=== PATIENT | male | born 1970 | race Caucasian/White ===

== ENCOUNTER 2020-03-19 07:30 | Inpatient (IN) | payer MEDICAID, SELFPAY ==
[2020-03-19] VITALS (107 sets, daily range): BP systolic 101–134; BP diastolic 53–87; PULSE 55–87; RESP 14–30; TEMP 35.9–36.8; O2SAT 96–100
--- NOTE | 2020-03-19 07:15 | DI.CT_ITS ---
EXAM: CT BRAIN NECK CTA CLINICAL HISTORY: left sided stroke like symptoms. TECHNIQUE: Imaging Protocol: Axial CT angiography was performed with multi-slice acquisition and mu lti-planar and/or 3D reconstructions. CONTRAST MATERIAL: Intravenous: Omnipaque 350 Contrast volume:85 mL COMPARISON: No exams were available for comparison FINDINGS: CT Head W/O: Ventricles and Extra axial spaces: Normal in size and morphology for the patient's age. Hemorrhage: None. Cerebral parenchyma: Normal. Midline shift: None. Brainstem/Cerebellum: Normal. Calvarium: Normal. Visualized Paranasal sinuses/Mastoids: Clear. Soft Tissues: Unremarkable. CTA Brain W: Internal Carotid Arteries: Petrous: Normal. Cavernous: Normal. Cerebral: Normal. Anterior Cerebral Arteries: Right: No aneurysm, occlusion or significant stenosis. Left: No aneurysm, occlusion or significant stenosis. Middle Cerebral Arteries: Right: No aneurysm, occlusion or significant stenosis. Left: No aneurysm, occlusion or significant stenosis. Posterior cerebral Arteries: Right: No aneurysm, occlusion or significant stenosis. Left: No aneurysm, occlusion or significant stenosis. Vertebral Arteries: Right: No aneurysm, occlusion or significant stenosis. Left: No aneurysm, occlusion or significant stenosis. Basilar Artery: No aneurysm, occlusion or significant stenosis. CTA Neck W: Common Carotid: Right: No dissection, occlusion or significant stenosis. Left: No dissection, occlusion or significant stenosis. External Carotid: Right: No occlusion or significant stenosis. Left: No occlusion or significant stenosis. Internal Carotid: Right: No dissection, occlusion or significant stenosis. Mild atherosclerosis at the origin of the r ight internal carotid artery. Left: No dissection, occlusion or significant stenosis. Vertebral Artery: Right: No dissection, occlusion or significant stenosis. Left: No dissection, occlusion or significant stenosis. There is a dominant left vertebral artery. Lung Apices: Normal. Bones: Mild degenerative changes in the cervical spine. Soft Tissues: Normal. IMPRESSION: 1. No evidence of occlusion or severe stenosis on the CTA of the head. 2. Unremarkable noncontrast CT Head. 3. No evidence of occlusion or severe stenosis on the CTA of the neck. RADIATION DOSE DELIVERED: 1,120.04mGy.cm Total DLP DATA REPOSITORY: All CT scans at this facility are submitted to the National Radiology Data Registry (NRDR) Dose Index Registry (DIR) with the [employer] (ACR). RADIATION OPTIMIZATION: All CT scans at this facility use at least one of these dose optimization te chniques: automated exposure control; mA and/or kV adjustment per patient size (includes targeted exa ms where dose is matched to clinical indication); or iterative reconstruction.
--- NOTE | 2020-03-19 07:15 | RT.EKG_ITS ---
APPROVED REPORT Exam: Resting ECG Patient Location: E HR:68 bpm ECG Measurements Heart Rate 68 AXIS MI 185 P 67 QRSd 81 QRS 77 QT 388 T 20 QTc 412 Conclusion EKG 7: 38 Rate 68, intervals normal, nonspecific ST elevation, particularly 1 mm in V2, and 1 to 1.5 mm in V3, J-point noted in V4 V5 and V6. No reciprocal depressions, inconsistent with STEMI currently.
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
[2020-03-19 07:45] LABS: Abs Immature Grans 0.02 10^3/uL (0.0-0.06); Absolute Basophil Count 0.05 10^3/uL (0.0-0.2); Absolute Eosinophil Count 0.13 10^3/uL (0.0-0.7); Absolute Lymphocyte Count 1.57 10^3/uL (1.2-3.4); Absolute Monocyte Count 0.61 10^3/uL (0.1-0.8); Absolute Neutrophil Count 2.38 10^3/uL (1.2-6.7); BE (Venous) -3 mmol/L (-2-3); Basophils % 1.1; Eosinophils % 2.7; HCO3 (Venous) 22 mmol/L (23-28); HCT 41.8 % (40.0-50.0); HGB 13.9 g/dL (13.5-17.5); Immature Grans % 0.4; MCH 30.8 pg (27.0-33.0); MCHC 33.3 % (32.0-36.0); MCV 92.5 fL (80-95); MPV 10.4 fL (8.0-11.0); Monocytes % 12.8; Nucleated RBC 0 %; O2 Sat (Venous) 63 %; Platelet Count 220 10^3/uL (130-400); RBC 4.52 10^6/uL (4.36-5.78); RDW 12.6 % (11.8-14.1); TCO2 (Venous) 19 mmol/L (24-29); WBC 4.76 10^3/uL (4.4-10.8); pCO2 (Venous) 35 mmHg (41-51); pO2 (Venous) 31 mmHg
[2020-03-19 08:01] LABS: ALT 23 U/L (16-63); AST 25 U/L (15-37); Albumin 3.7 g/dL (3.4-5.0); Alkaline Phosphatase 70 U/L (46-116); Anion Gap 10.3 mmol/L (3-11); BUN 11 mg/dL (7-18); Bilirubin, Total 0.4 mg/dL (0.2-1.0); CO2 22.7 mmol/L (21.0-32.0); CREATININE 0.78 mg/dL (0.70-1.30); Calcium 8.9 mg/dL (8.5-10.1); Chloride 106 mmol/L (98-107); Glucose 126 mg/dL (74-106); Sodium 139 mmol/L (136-145); Total Protein 6.9 g/dL (6.4-8.2)
[2020-03-19 08:06] LABS: PTT Activated 20.4 sec (21.0-27.8)
[2020-03-19 08:09] LABS: ETHANOL BLOOD < 3.0 mg/dL (<3)
[2020-03-19] MEDS: Omnipaque 350 MG/ML 100 ML BTL IJ (08:14)
[2020-03-19] MEDS: Normal Saline Flush 10 ML SYR IVP (08:15)
[2020-03-19 08:36] LABS: Ammonia < 10 umol/L (11-32)
[2020-03-19] MEDS: Normal Saline 1,000 ML 125 ML IV ×2 (08:45→23:34)
--- NOTE | 2020-03-19 09:03 | DI.VRAD_ITS ---
PROCEDURE INFORMATION: Exam: CT Angiography Head With Contrast Exam date and time: 03/19/2020 7:30 AM Age: 49 years old Clinical indication: Dizziness and giddiness and other: L sided stroke symptoms TECHNIQUE: Imaging protocol: Computed tomography angiography of the head with intravenous contrast. 3D rendering (Not supervised by radiologist): MIP and/or 3D reconstructed images were created by the technologist. COMPARISON: No relevant prior studies available. FINDINGS: ANTERIOR CIRCULATION: Right internal carotid artery: Unremarkable. Intracranial segment is patent with no significant stenosis. No aneurysm. Right middle cerebral artery: Unremarkable. No occlusion or significant stenosis. No aneurysm. Right anterior cerebral artery: Unremarkable. No occlusion or significant stenosis. No aneurysm. Left internal carotid artery: Unremarkable. Intracranial segment is patent with no significant stenosis. No aneurysm. Left middle cerebral artery: Unremarkable. No occlusion or significant stenosis. No aneurysm. Left anterior cerebral artery: Unremarkable. No occlusion or significant stenosis. No aneurysm. POSTERIOR CIRCULATION: Right vertebral artery: Unremarkable. No occlusion or significant stenosis. No aneurysm. Left vertebral artery: Unremarkable. No occlusion or significant stenosis. No aneurysm. Basilar artery: Unremarkable. No occlusion or significant stenosis. No aneurysm. Right posterior cerebral artery: Unremarkable. No occlusion or significant stenosis. No aneurysm. Left posterior cerebral artery: Unremarkable. No occlusion or significant stenosis. No aneurysm. Brain: No definite mass, mass effect, or midline shift. Cerebral ventricles: Normal. No ventriculomegaly. Bones/joints: Unremarkable. No acute fracture. Soft tissues: Unremarkable. IMPRESSION: 1. No evidence of severe stenosis or occlusion of the vessels of the [id number] or their visualized branches. 2. No evidence of acute thrombosis or embolus. PROCEDURE INFORMATION: Exam: CT Angiography Neck With Contrast Exam date and time: 03/19/2020 7:30 AM Age: 49 years old Clinical indication: Dizziness and giddiness and other: L sided stroke symptoms TECHNIQUE: Imaging protocol: Computed tomography angiography of the neck with intravenous contrast. 3D rendering (Not supervised by radiologist): MIP and/or 3D reconstructed images were created by the technologist. COMPARISON: No relevant prior studies available. FINDINGS: Right common carotid artery: No stenosis. No dissection or occlusion. Right internal carotid artery: No stenosis of the extracranial segment. No dissection or occlusion. There is a small calcified plaque at the origin of the right internal carotid artery causing no stenosis by NASCET criteria. Right external carotid artery: No occlusion or stenosis of the origin. Right vertebral artery: A non dominant right vertebral artery with mild distal hyperplasia, anatomic variant. Left common carotid artery: No stenosis. No dissection or occlusion. Left internal carotid artery: No stenosis of the extracranial segment. No dissection or occlusion. Left external carotid artery: No occlusion or stenosis of the origin. Left vertebral artery: No stenosis. No dissection or occlusion. Bones/joints: No acute fracture. Soft tissues: Normal. No significant soft tissue swelling. IMPRESSION: 1. Atherosclerotic disease of the extracranial right internal carotid artery with no stenosis by NASCET criteria. 2. Normal left extracranial internal carotid artery by NASCET criteria. 3. Patent bilateral vertebral arteries with a dominant left vertebral. REFERENCES: NASCET CRITERIA. The degree of internal carotid artery stenosis is based on NASCET criteria. Normal is no stenosis. Mild is less than 50% stenosis. Moderate is 50-69% stenosis. Severe is 70% to 99% stenosis. Total occlusion is no detectable patent lumen. Dictated and Authenticated by: Roberto España MD. Ordering:SARA Mattson MD
[2020-03-19 09:20] LABS: Troponin I < 0.05 ng/mL (<0.06)
[2020-03-19 10:01] LABS: Bilirubin Negative (Negative); Blood Negative (Negative); Clarity Clear (Clear); Glucose Negative (Negative); Ketones Trace mg/dL (Negative); Leukocyte Esterase Negative (Negative); Nitrite Negative (Negative); Specific Gravity 1.015 (1.005-1.025); Urobilinogen 0.2 EU/dL (Up TO 0.2)
[2020-03-19] MEDS: Heparin 5,000 UNITS/ML VIAL 4600 UNITS IV (11:22)
[2020-03-19] MEDS: Aspirin 325 MG TAB PO (11:23)
--- NOTE | 2020-03-19 12:58 | NUR.NOTE ---
hospitalist in at bedside to see provider
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
[2020-03-19 15:08] LABS: C-Reactive Protein 0.07 mg/dL (0.0-0.3)
[2020-03-19 15:09] LABS: D-Dimer 284 ng/mlFEU (<500)
[2020-03-19 15:10] LABS: Troponin I < 0.05 ng/mL (<0.06)
[2020-03-19 15:13] LABS: FREE T4 0.92 ng/dL (0.76-1.46); TSH 0.95 uIU/mL (0.36-3.74)
[2020-03-19 15:18] LABS: ESR 15 mm/hr (0-15)
[2020-03-19 15:29] LABS: *AMPHETAMINES SCREEN URINE Negative (Negative); *BARBITURATES SCREEN URINE Negative (Negative); *BENZODIAZEPINES SCREEN URINE Negative (Negative); Cannabinoids THC Negative (Negative); Cocaine Screen,Urine Negative (Negative); METHADONE URINE SCREEN Negative (Negative); OPIATES URINE SCREEN Negative (Negative); Tricyclic Antidepressants Negative (Negative)
[2020-03-19 15:32] LABS: Procalcitonin < 0.1 ng/mL
[2020-03-19 15:58] LABS: Ferritin 84 ng/mL (26-388); Vitamin B12 440 pg/mL (193-986)
[2020-03-19 19:58] LABS: PTT Activated 71.6 sec (21.0-27.8)
[2020-03-19] MEDS: Atorvastatin 40 MG TAB PO (21:31)
[2020-03-19] MEDS: Famotidine 20 MG TAB PO (21:31)
--- NOTE | 2020-03-19 22:33 | NUR.NOTE ---
2114-ptt back at 71.6. Heparin gtt stopped for 1 hr . restarted at 2215 at700 ml or 7 units /hr per protocol. Next PTT to be drawn at 0315.
[2020-03-20] VITALS (90 sets, daily range): BP systolic 92–122; BP diastolic 57–76; PULSE 44–96; RESP 12–33; TEMP 36–36.5; O2SAT 96–100
[2020-03-20] MEDS: Normal Saline 1,000 ML 125 ML IV ×3 (06:29→22:20)
[2020-03-20 07:31] LABS: Abs Immature Grans 0.01 10^3/uL (0.0-0.06); Absolute Basophil Count 0.05 10^3/uL (0.0-0.2); Absolute Eosinophil Count 0.13 10^3/uL (0.0-0.7); Absolute Lymphocyte Count 1.89 10^3/uL (1.2-3.4); Absolute Monocyte Count 0.53 10^3/uL (0.1-0.8); Absolute Neutrophil Count 1.66 10^3/uL (1.2-6.7); Basophils % 1.2; HCT 36.9 % (40.0-50.0); HGB 12.2 g/dL (13.5-17.5); Immature Grans % 0.2; Lymphocytes % 44.3; MCH 30.7 pg (27.0-33.0); MCHC 33.1 % (32.0-36.0); MCV 92.7 fL (80-95); Monocytes % 12.4; Neutrophils % 38.9; Nucleated RBC 0 %; Platelet Count 207 10^3/uL (130-400); RBC 3.98 10^6/uL (4.36-5.78); RDW 13.1 % (11.8-14.1); RDW-SD 44.8 fL; WBC 4.27 10^3/uL (4.4-10.8)
[2020-03-20 07:48] LABS: Anion Gap 7.6 mmol/L (3-11); BUN 8 mg/dL (7-18); CO2 23.4 mmol/L (21.0-32.0); CREATININE 0.64 mg/dL (0.70-1.30); Calcium 8.2 mg/dL (8.5-10.1); Calculated LDL 92 mg/dL (<100); Chloride 110 mmol/L (98-107); Cholesterol 165 mg/dL (<200); Glucose 94 mg/dL (74-106); HDL Cholesterol 67 mg/dL (40-60); Magnesium 1.8 mg/dL (1.8-2.4); Potassium 3.8 mmol/L (3.5-5.1); Sodium 141 mmol/L (136-145); Triglyceride 31 mg/dL (<150); Troponin I < 0.05 ng/mL (<0.06)
[2020-03-20 08:02] LABS: Hemoglobin A1C 5.8 % (<5.7)
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
--- NOTE | 2020-03-20 08:23 | PGE_ITS ---
Date of Service Date of service: 03/20/20 Time of Service: 14:04 Assessment and Plan Assessment and plan (1) Acute CVA (cerebrovascular accident): Status: Suspected Assessment and plan: There are no beds at [facility]. Continue heparin gtt per recommendation of [facility] neurology. The patient brought up that aspirin was on the list of medications he was to avoid due to having h/o minimal change disease. Dr Flores recommended changing to plavix instead, in this case. The patient's lipids are technically at goal, but will continue statin for now. MRI of the brain as well as echo are ordered. Await neuro consult. Await LE doppler to r/o a DVT (which could be contributing to the CVA if the patient has a PFO). Await tick panel is pending. Atypical migraine also needs to be considered. (2) Hyperlipidemia: Status: Chronic Assessment and plan: Lipids at goal. On a statin given suspected acute event. (3) Minimal change disease: Status: Chronic Assessment and plan: This presented with nephrotic syndrome >2 years ago in [place], in setting of NSAID use. Currently followed at [facility]. Previously on prednisone for this, but not at this time. Technically, the patient could be at a higher risk of being hypercoagulable. Additionally, will avoid asa in this patient and switch to plavix. (4) Stress headaches: Status: Chronic Assessment and plan: The patient has never seen a neurologist, and I wonder if he has migraines. (5) DVT prophylaxis: Status: Acute Assessment and plan: On therapeutic heparin gtt. (6) Discharge planning issues: Status: Acute Assessment and plan: Full code. Keep in ICU. Total Critical Care Time 60 minutes. Subjective Subjective Interval history since last seen: No h/a. No weakness today. L facial, LUE/LLE Numbness and paresthesias persist. The patient feels that the facial symptoms actually feel better. Endorses some dizziness with movement. Denies chest pain, shortness of breath, nausea. ESVIN overnight. No fever. Case was discussed with Dr Flores - neurology - would agreed that the patient should be transferred to [facility], but there are no beds available. Exam Narrative Exam Narrative: General: Middle-aged male, laying comfortably in bed, fluent speech, conversant. Neurological: A&Ox3, EOMI with horizontal nystagmus best seen in the left eye, L facial flattening is slightly improved; otherwise, CN II-XII intact, 5/5 LUE/LLE strength, 5/5 RUE/RLE strength HEENT: Atraumatic, normocephalic, EOMI, MMM Cardiovascular: RRR, no m/r/g Lungs: CTAB Gastrointestinal: soft, nontender, nondistended Extremities: no edema/clubbing/cyanosis of BLE's, trace pedal pulses B; B feet are cold. Objective Last Vital Signs Temp 36.5 C 03/20/20 00:00 Pulse 51 L 03/20/20 06:00 Resp 19 03/20/20 06:10 BP 115/69 03/20/20 06:00 Pulse Ox 98 03/20/20 00:00 Laboratory Results - last 24 hr 03/19/20 03/19/20 03/19/20 08:35 09:50 14:15 WBC RBC Hgb Hct MCV MCH MCHC RDW Plt Count MPV Immature Gran % Neutrophils % Lymphocytes % Monocytes % Eosinophils % Basophils % Nucleated RBC % Absolute Neutrophils Absolute Lymphocytes Absolute Monocytes Absolute Eosinophils Absolute Basophils ESR APTT D-Dimer Sodium Potassium Chloride Carbon Dioxide Anion Gap BUN Creatinine Estimated GFR/1.73 m2 Glucose Hemoglobin A1c Calcium Magnesium Ferritin Troponin I C-Reactive Protein Triglycerides Total Cholesterol LDL Cholesterol, Calc HDL Cholesterol Vitamin B12 Procalcitonin < 0.1 TSH Free T4 Urine Color Yellow Urine Clarity Clear Urine pH 7.0 Ur Specific [place] 1.015 Urine Protein Negative Urine Ketones Trace H Urine Blood Negative Urine Nitrite Negative Urine Bilirubin Negative Urine Urobilinogen 0.2 Ur Leukocyte Esterase Negative Urine Glucose Negative Urine Opiates Screen Urine Methadone Screen Ur Barbiturates Screen Ur Tricyclics Screen Ur Amphetamines Screen U Benzodiazepines Scrn Urine Cocaine Screen Ur THC Screen COVID-19 PCR Cancelled Nasopharyn COVID-19 PCR Cancelled Ref Test Perform Site Cancelled 03/19/20 03/19/20 03/19/20 14:15 14:15 14:15 WBC RBC Hgb Hct MCV MCH MCHC RDW Plt Count MPV Immature Gran % Neutrophils % Lymphocytes % Monocytes % Eosinophils % Basophils % Nucleated RBC % Absolute Neutrophils Absolute Lymphocytes Absolute Monocytes Absolute Eosinophils Absolute Basophils ESR 15 APTT D-Dimer 284 Sodium Potassium Chloride Carbon Dioxide Anion Gap BUN Creatinine Estimated GFR/1.73 m2 Glucose Hemoglobin A1c Calcium Magnesium Ferritin Troponin I < 0.05 C-Reactive Protein 0.07 Triglycerides Total Cholesterol LDL Cholesterol, Calc HDL Cholesterol Vitamin B12 Procalcitonin TSH Free T4 Urine Color Urine Clarity Urine pH Ur Specific [place] Urine Protein Urine Ketones Urine Blood Urine Nitrite Urine Bilirubin Urine Urobilinogen Ur Leukocyte Esterase Urine Glucose Urine Opiates Screen Urine Methadone Screen Ur Barbiturates Screen Ur Tricyclics Screen Ur Amphetamines Screen U Benzodiazepines Scrn Urine Cocaine Screen Ur THC Screen COVID-19 [facility] COVID-19 PCR Ref Test Perform Site 03/19/20 03/19/20 03/19/20 14:15 15:07 19:20 WBC RBC Hgb Hct MCV MCH MCHC RDW Plt Count MPV Immature Gran % Neutrophils % Lymphocytes % Monocytes % Eosinophils % Basophils % Nucleated RBC % Absolute Neutrophils Absolute Lymphocytes Absolute Monocytes Absolute Eosinophils Absolute Basophils ESR APTT 71.6 H D D-Dimer Sodium Potassium Chloride Carbon Dioxide Anion Gap BUN Creatinine Estimated GFR/1.73 m2 Glucose Hemoglobin A1c Calcium Magnesium 2.0 Ferritin 84 Troponin I C-Reactive Protein Triglycerides Total Cholesterol LDL Cholesterol, Calc HDL Cholesterol Vitamin B12 440 Procalcitonin TSH 0.95 Free T4 0.92 Urine Color Urine Clarity Urine pH Ur Specific [place] Urine Protein Urine Ketones Urine Blood Urine Nitrite Urine Bilirubin Urine Urobilinogen Ur Leukocyte Esterase Urine Glucose Urine Opiates Screen Negative Urine Methadone Screen Negative Ur Barbiturates Screen Negative Ur Tricyclics Screen Negative Ur Amphetamines Screen Negative U Benzodiazepines Scrn Negative Urine Cocaine Screen Negative Ur THC Screen Negative COVID-19 [facility] COVID-19 PCR Ref Test Perform Site 03/20/20 03/20/20 03/20/20 03:30 06:20 06:20 WBC RBC Hgb Hct MCV MCH MCHC RDW Plt Count MPV Immature Gran % Neutrophils % Lymphocytes % Monocytes % Eosinophils % Basophils % Nucleated RBC % Absolute Neutrophils Absolute Lymphocytes Absolute Monocytes Absolute Eosinophils Absolute Basophils ESR APTT 48.0 H D D-Dimer Sodium 141 Potassium 3.8 Chloride 110 H Carbon Dioxide 23.4 Anion Gap 7.6 BUN 8 Creatinine 0.64 L Estimated GFR/1.73 m2 >= 60.00 Glucose 94 Hemoglobin A1c 5.8 H Calcium 8.2 L Magnesium 1.8 Ferritin Troponin I < 0.05 C-Reactive Protein Triglycerides 31 Total Cholesterol 165 LDL Cholesterol, Calc 92 HDL Cholesterol 67 Vitamin B12 Procalcitonin TSH Free T4 Urine Color Urine Clarity Urine pH Ur Specific [place] Urine Protein Urine Ketones Urine Blood Urine Nitrite Urine Bilirubin Urine Urobilinogen Ur Leukocyte Esterase Urine Glucose Urine Opiates Screen Urine Methadone Screen Ur Barbiturates Screen Ur Tricyclics Screen Ur Amphetamines Screen U Benzodiazepines Scrn Urine Cocaine Screen Ur THC Screen COVID-19 PCR Nasopharyn COVID-19 PCR Ref Test Perform Site 03/20/20 06:20 WBC 4.27 L RBC 3.98 L Hgb 12.2 L Hct 36.9 L MCV 92.7 MCH 30.7 MCHC 33.1 RDW 13.1 Plt Count 207 MPV 11.0 Immature Gran % 0.2 Neutrophils % 38.9 Lymphocytes % 44.3 Monocytes % 12.4 Eosinophils % 3.0 Basophils % 1.2 Nucleated RBC % 0 Absolute Neutrophils 1.66 Absolute Lymphocytes 1.89 Absolute Monocytes 0.53 Absolute Eosinophils 0.13 Absolute Basophils 0.05 ESR APTT D-Dimer Sodium Potassium Chloride Carbon Dioxide Anion Gap BUN Creatinine Estimated GFR/1.73 m2 Glucose Hemoglobin A1c Calcium Magnesium Ferritin Troponin I C-Reactive Protein Triglycerides Total Cholesterol LDL Cholesterol, Calc HDL Cholesterol Vitamin B12 Procalcitonin TSH Free T4 Urine Color Urine Clarity Urine pH Ur Specific [place] Urine Protein Urine Ketones Urine Blood Urine Nitrite Urine Bilirubin Urine Urobilinogen Ur Leukocyte Esterase Urine Glucose Urine Opiates Screen Urine Methadone Screen Ur Barbiturates Screen Ur Tricyclics Screen Ur Amphetamines Screen U Benzodiazepines Scrn Urine Cocaine Screen Ur THC Screen COVID-19 PCR Nasopharyn COVID-19 PCR Ref Test Perform Site
[2020-03-20] MEDS: Cyanocobalamin 500 MCG TAB 1000 MCG PO (08:39)
[2020-03-20] MEDS: Famotidine 20 MG TAB PO ×2 (08:40→20:15)
[2020-03-20] MEDS: Aspirin E.C. 81 MG TABEC PO (11:11)
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
[2020-03-20] MEDS: Clopidogrel 75 MG TAB PO (12:49)
[2020-03-20] MEDS: Atorvastatin 40 MG TAB PO (20:14)
[2020-03-21] VITALS (34 sets, daily range): BP systolic 99–129; BP diastolic 58–91; PULSE 45–81; RESP 14–30; TEMP 36.2–36.7; O2SAT 98–100
[2020-03-21] MEDS: Normal Saline 1,000 ML 125 ML IV (05:48)
[2020-03-21 07:04] LABS: PTT Activated 42.5 sec (21.0-27.8)
[2020-03-21 07:29] LABS: Anion Gap 8.3 mmol/L (3-11); BUN 9 mg/dL (7-18); CO2 21.7 mmol/L (21.0-32.0); CREATININE 0.75 mg/dL (0.70-1.30); Calcium 8.8 mg/dL (8.5-10.1); Chloride 110 mmol/L (98-107); Glucose 95 mg/dL (74-106); Magnesium 1.8 mg/dL (1.8-2.4); Potassium 3.8 mmol/L (3.5-5.1); Sodium 140 mmol/L (136-145)
--- NOTE | 2020-03-21 08:00 | DI.MRI_ITS ---
EXAM: MR BRAIN WO CLINICAL HISTORY: Suspected acute CVA,LT SIDED NUMBNESS,TINGLING, WEAKNESS TECHNIQUE: Multiplanar multisequence MRI of the brain was performed. COMPARISON: CT CT BRAIN NECK CTA from 03/19/2020 FINDINGS: VENTRICLES AND EXTRA AXIAL SPACES: Normal in size and morphology for the patient's age. MIDLINE SHIFT: None. CEREBRAL PARENCHYMA: There is an area of restricted diffusion on the right in the midbrain in the reg ion of the colliculus. No space-occupying lesion identified. There are several areas of hyperintense signal on the T2 and FLAIR images in the white matter. This likely reflects chronic microvascular is chemic change. HEMORRHAGE: None. BRAINSTEM/CEREBELLUM: Normal. CALVARIUM: Normal. VISUALIZED PARANASAL SINUSES/MASTOIDS:Clear. [place]: Normal flow void. [place]: Unremarkable. OTHER FINDINGS: None. IMPRESSION: There is an area of restricted diffusion on the right in the midbrain in the region of the colliculus . This is consistent with a subacute/acute infarct. Hyperintense signal on the T2 and FLAIR images in the white matter likely reflecting chronic microvas cular ischemic change. DATA REPOSITORY:
--- NOTE | 2020-03-21 08:00 | DI.US_ITS ---
EXAM: US EXTREMITY VENOUS BI CLINICAL HISTORY: LLE pain, concern for DVT. TECHNIQUE: Bilateral lower extremity venous ultrasound performed using grayscale, color-flow, and sp ectral Doppler analysis. COMPARISON: No exams were available for comparison FINDINGS: The bilateral common femoral, femoral and popliteal veins demonstrate normal compressibility, augment ation, and color Doppler. The posterior tibial veins are patent. The saphenofemoral junctions are unr emarkable. There is a 3 cm Cordova's cyst on the left. The soft tissues are unremarkable. IMPRESSION: Right: Negative for DVT Left: Negative for DVT DATA REPOSITORY:
--- NOTE | 2020-03-21 08:37 | PDOC.CMPRO ---
- If Service Date Differs Date of service: 03/21/20 Time of Service: 08:37 Care Management Progress Note S/O:Man is alert and engaged with CM he is currently having an echo. He is not comfortable with a discharge today. His plan will be to stay with his friend at time of discharge over in [place], [place]. CM will assist with insurance and Man agrees to consent to allow JOEL to assist with insurance. A:Man is a 49 year old patient admitted with suspected CVA P:Anticipate Man will be discharged home when medically cleared by provider. He will follow up with his PCP, cardiology, and plan of care as directed. His friend, Hunter, will transport him home via private vehicle when ready. CM will continue to support patient and discharge planning needs.
--- NOTE | 2020-03-21 08:49 | OT.INNT ---
Date of service: 03/21/20 Time of Service: 08:10 Occupational Therapy Notes 03/21/20 OT consult received and pt's chart was reviewed. OT attempted to see pt this morning and pt was out of room for testing per RN. OT will attempt consult tomorrow. [facility]
[2020-03-21 09:06] LABS: SARS-CoV-2 RNA Not Detected (NotDetected); SARS-CoV-2 RNA Source Nasal/Nares
[2020-03-21] MEDS: Cyanocobalamin 500 MCG TAB 1000 MCG PO (09:26)
[2020-03-21] MEDS: Clopidogrel 75 MG TAB PO (09:26)
[2020-03-21] MEDS: Famotidine 20 MG TAB PO ×2 (09:26→20:00)
--- NOTE | 2020-03-21 09:30 | DI.US_ITS ---
APPROVED REPORT EXAM: Comprehensive 2D, Doppler, and color-flow Echocardiogram Patient Location: In-Patient Room/Bed: [id number] Spinner Box: Jackie Moreno RDCS (AE) Indications: Suspected acute CVA Other Information Study Quality: Adequate Conclusion Left Ventricle : The left ventricle is normal size. The left ventricular systolic function is normal. The left ventricular ejection fraction is within the normal range. There is normal left ventricular wall thickness. There is normal LV segmental wall motion. The left ventricular diastolic function is normal. LVEF is 58%. Right Ventricle : The right ventricle is normal size. The right ventricular systolic function is norm al. The RVSP is 22.8mmHg. Atria : The left atrium size is normal. The right atrium size is normal. The interatrial septum is in tact with no evidence for an atrial septal defect. Atrial septal aneurysm is present. Mitral Valve : The mitral valve is normal in structure. Mild mitral regurgitation. No evidence of charlee ral valve stenosis. Great Vessels : The aortic root is normal in size. The ascending aorta is normal in size. Aortic arch is normal in caliber. IVC is normal in size and collapses >50% with inspiration. There is no prior study available for comparison. Please see remainder of study for further details. Wall motion Left Ventricle The left ventricle is normal size. The left ventricular systolic function is normal. The left ventric ular ejection fraction is within the normal range. There is normal left ventricular wall thickness. T here is normal LV segmental wall motion. The left ventricular diastolic function is normal. There is no ventricular septal defect visualized. LVEF is 58%. Right Ventricle The right ventricle is normal size. The right ventricular systolic function is normal. The RVSP is 22 .8mmHg. Atria The left atrium size is normal. The right atrium size is normal. The interatrial septum is intact wit h no evidence for an atrial septal defect. Atrial septal aneurysm is present. Aortic Valve The aortic valve is normal in structure. There is no aortic valvular stenosis. No aortic regurgitatio n is present. Mitral Valve The mitral valve is normal in structure. No evidence of mitral valve stenosis. Mild mitral regurgitat ion. Tricuspid Valve The tricuspid valve is normal in structure. There is no tricuspid valve stenosis. Trace tricuspid reg urgitation. Pulmonic Valve The pulmonary valve is normal in structure. There is no pulmonic valvular stenosis. Trace pulmonic re gurgitation. Great Vessels The aortic root is normal in size. The ascending aorta is normal in size. Aortic arch is normal in ca liber. IVC is normal in size and collapses >50% with inspiration. Pericardium There is no pericardial effusion. 2D Dimensions IVSD d PLAX 0.92 cm M: 0.6-1.2 LV Vol A2C d MOD 110.0 mL LVPW d PLAX 0.90 cm M: 0.6 - 1.2 LV Vol A4C d MOD 128.4 mL LVID d PLAX 4.82 cm M: 4.2 - 5.8 LA vol/ BSA A2C s A-L 30.7 mL/m2 LVDs 3.10 cm M: 2.5 - 4.0 LA vol/ BSA A4C s A-L 31.8 mL/m2 Ao Root d 2.75 cm M: 3.1 - 3.7 LA Vol/ BSA Biplane s A-L 32.4 mL/m2 RA Area A4C 12.08 cm2 LA Area A4C s MOD 19.77 cm2 RA Vol/ BSA A4C s A-L 15.1 mL/m2 LA Area A2C s MOD 18.75 cm2 Ao Asc Diam d 2.95 cm M: 2.6 - 3.4 LV EF A4C MOD 58.6 % LV EF Teichholz 64.0 % LV EF A2C MOD 56.6 % LVEF (Pa's) 57.84 % M: 52 - 72 LV EF Biplane MOD 57.8 % LV Volume 92.36 mL M: 62 - 150 SV 69.78 mL LV Volume Index 49.12 mL/m2 M: 34 - 74 SV Index 37.07 mL/m2 LV Vol Biplane MOD 120.6 mL FS 34.90 % M-Mode TAPSE 2.11 cm (M/F) >1.7 LV Diastology MV E' medial 0.127 (>0.07 m/s) E/A Ratio 1.6 LV E/e MED 8.55 (<14) MV E Vmax 1.09 (0.4-1.3 m/s) MV E' lateral 0.165 (>0.1 m/s) MV A Vmax 0.70 (0.4-1.3 m/s) LV E/e LAT 6.60 (<14) MV E/A Ratio 1.46 MV E/E' medial 8.57 MV E/E' lateral 6.60 Aortic Valve LVOT Area 3.42 cm2 AoV Area Vmax 3.11 cm2 LVOT Vmax 1.48 m/s AoV Area/ BSA (Vmax) 1.65 cm2/m2 LVOT Mean Major. 0.94 m/s LORRAINE Mean Major. 2.91 cm2 LVOT Peak Grad 8.7 mmHg LORRAINE Mean Major. Index 1.55 cm2/m2 LVOT Mean Grad 4.2 mmHg LVOT VTI 0.280 m LVOT Diam s 2.05 cm AoV Vmax 1.63 m/s Velocity Ratio 0.90 AoV Mean Major. 1.10 m/s AoV Peak Grad 10.6 mmHg LVOT SV 95.87 mL AoV Mean Grad 5.5 mmHg AoV VTI 0.257 m AoV Area VTI 3.73 cm2 AoV Area/ BSA (VTI) 1.98 cm/m2 Mitral Valve MV DT 186 (160-240 msec) MR Vmax 5.35 m/s MV PHT 54 msec MR VTI 1.855 m MV Area PHT 4.07 cm2 MR Peak Grad 114.6 mmHg MV VTI 0.274 m MR Mean Grad 94.6 mmHg MV VTI Annulus 0.274 m MR PISA Radius 0.37 cm MV Area VTI 3.51 (4.0-6.0 cm2) MR EROA 0.06 cm2 MR Aliasing Velocity 0.35 m/s MR PISA 0.84 cm2 Pulmonary Valve PV Vmax 1.05 (0.5-1.5 m/s) RVOT Peak Gr. 2.12 mmHg PV Peak Grad 4.4 mmHg RVOT Mean Gr. 1.05 mmHg PV Mean Grad 2.1 mmHg RVOT VTI 0.160 m PV VTI 0.210 m RVOT Vmax 0.73 m/s Tricuspid Valve TR Peak Grad 19.7 mmHg TR Vmax 2.22 m/s RA Pressure 3.00 mmHg RVSP (TR) 22.8 mmHg
--- NOTE | 2020-03-21 12:55 | W.NUTRFU ---
Date of service: 03/21/20 Time of Service: 12:55 Nutritional Follow up NOTE: 49 year old male admitted with CVA. BMI wnl for age. Following regular meal plan with excellent intake. PRODUCT SUPPORT TECHNICIAN not consulted, no swallowing issues per nursing. Currently not considered at nutritional risk. WIll continueto follow. Time Spent in Nutritional Counseling and Treatment: 0 time spent face to face
--- NOTE | 2020-03-21 15:56 | CHAPLAIN ---
Man was resting in bed when I visited. He told me about the symptoms he experienced on Saturday morning that brought him to the ER. Most of his family lives in [place] and he's been in touch with them by phone. A family friend is a doctor, who has been helping to explain his medical issues to his parents. Man said he moved to [facility] a few years ago after living in [place], [place] far from [facility].
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
--- NOTE | 2020-03-21 16:26 | PGE_ITS ---
Date of Service Date of service: 03/21/20 Time of Service: 16:26 Assessment and Plan Assessment and plan (1) Acute CVA (cerebrovascular accident): Status: Suspected Assessment and plan: Confirmed by MRI. Discussed with Dr Pope: we are d/c'ing heparin gtt today and will observe the patient overnight. Assuming he remains stable, he can be discharged home tomorrow. Does have evidence of an atrial septal aneurysm, but it is unlikely to be an embolic stroke based on location, per neuro. Given h/o nephrotic syndrome, we will get a hypercoagulable workup in the am. Continue plavix, statin. (2) Hyperlipidemia: Status: Chronic Assessment and plan: Lipids at goal. Continue statin. (3) Minimal change disease: Status: Chronic Assessment and plan: This presented with nephrotic syndrome >2 years ago in [place], in setting of NSAID use. Currently followed at [facility]. Previously on prednisone for this, but not at this time. Technically, the patient could be at a higher risk of being hypercoagulable. As above - we will pursue hypercoagulable workup tomorrow. (4) Stress headaches: Status: Chronic Assessment and plan: Will need outpatient follow up. (5) DVT prophylaxis: Status: Acute Assessment and plan: Heparin gtt d/c'ed. If still here tomorrow, start heparin SC. (6) Discharge planning issues: Status: Acute Assessment and plan: Full code. Keep in ICU. Subjective Subjective Interval history since last seen: Feels a lot better today, though still has some tingling and numbness in in his L hand and foot as well as his face. He feels a lot better overall. Less dizzy, and steady on his feet. Denies headache, chest pain, shortness of breath, nausea. Was evaluated by neurology: does have evidence of a CVA on MRI. Trialing off anticoagulation tonight. Exam Narrative Exam Narrative: General: Middle-aged male, laying comfortably in bed, fluent speech, conversant. Neurological: A&Ox3, EOMI HEENT: Atraumatic, normocephalic, EOMI, MMM Cardiovascular: RRR, no m/r/g Lungs: CTAB Gastrointestinal: soft, nontender, nondistended Extremities: no edema/clubbing/cyanosis of BLE's, trace pedal pulses B; B feet are cold. Objective Last Vital Signs Temp 36.2 C L 03/21/20 12:00 Pulse 75 03/21/20 12:00 Resp 21 03/21/20 12:00 BP 116/75 03/21/20 12:00 Pulse Ox 100 03/21/20 12:00 Laboratory Results - last 24 hr 03/19/20 03/21/20 03/21/20 08:35 06:20 06:20 APTT 42.5 H Sodium 140 Potassium 3.8 Chloride 110 H Carbon Dioxide 21.7 Anion Gap 8.3 BUN 9 Creatinine 0.75 Estimated GFR/1.73 m2 >= 60.00 Glucose 95 Calcium 8.8 Magnesium 1.8 SARS-CoV-2 Source Nasal/nares SARS-CoV-2 (PCR) Not detected Objective Narrative Objective Narrative: Echo; Left Ventricle : The left ventricle is normal size. The left ventricular systolic function is normal. The left ventricular ejection fraction is within the normal range. There is normal left ventricular wall thickness. There is normal LV segmental wall motion. The left ventricular diastolic function is normal. LVEF is 58%. Right Ventricle : The right ventricle is normal size. The right ventricular systolic function is normal. The RVSP is 22.8mmHg. Atria : The left atrium size is normal. The right atrium size is normal. The interatrial septum is intact with no evidence for an atrial septal defect. Atrial septal aneurysm is present. Mitral Valve : The mitral valve is normal in structure. Mild mitral regurgitation. No evidence of mitral valve stenosis. Great Vessels : The aortic root is normal in size. The ascending aorta is normal in size. Aortic arch is normal in caliber. IVC is normal in size and collapses >50% with inspiration. There is no prior study available for comparison. Please see remainder of study for further details. MRI brain: There is an area of restricted diffusion on the right in the midbrain in the region of the colliculus. This is consistent with a subacute/acute infarct. Hyperintense signal on the T2 and FLAIR images in the white matter likely reflecting chronic microvascular ischemic change. Venous doppler BLE's: Right: Negative for DVT Left: Negative for DVT
[2020-03-21] MEDS: Atorvastatin 40 MG TAB PO (20:00)
[2020-03-22] VITALS (37 sets, daily range): BP systolic 89–133; BP diastolic 52–84; PULSE 45–87; RESP 14–32; TEMP 36–36.8; O2SAT 98–100
[2020-03-22 00:05] LABS: PTT Activated 33.3 sec (21.0-27.5)
--- NOTE | 2020-03-22 07:15 | OT.INNT ---
Date of service: 03/22/20 Time of Service: 07:05 Occupational Therapy Notes 03/22/20 OT went in to see pt who was awake and sitting on side of the bed. There is no charge for consultation as pt is totally (I) at this time. He is reporting numbness in his (L) side and states that last night they took him off blood thinners and his chin started to go numb. He has been performing his bathing routine standing at the sink. He does live alone with his dog in a private home which he reports is small and has 3 steps to enter. The purpose of his home is to fix it up which he states will have to hold for now. His plan is to stay with a friend for a week and then transition home where he believes his father is coming to stay with him. 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 OT educates pt on the importance of use for his (L) UE, crossing midline and allowing rest times if needed. He denies the need for skilled OT services and states that he is able to perform his ADLs (I) at this time. Based on pts current level of function, OT does recommend that pt return home when medically cleared per MD. At this time he is fearful of this happening again but states that he feels well supported. No charge for todays session. Rashmi Martinez, OTR/L [facility]
[2020-03-22] MEDS: Famotidine 20 MG TAB PO ×2 (07:46→19:44)
[2020-03-22] MEDS: Clopidogrel 75 MG TAB PO (07:46)
[2020-03-22] MEDS: Cyanocobalamin 500 MCG TAB 1000 MCG PO (07:47)
[2020-03-22] MEDS: Normal Saline Flush 10 ML SYR IVP ×2 (07:47→19:44)
--- NOTE | 2020-03-22 08:19 | W.PM.PROGNOT ---
Date of Service Date of service: 03/22/20 Time of Service: 11:02 Assessment and Plan Assessment and plan (1) Acute CVA (cerebrovascular accident): Status: Acute Assessment and plan: Confirmed by MRI, felt to be pontine CVA. The patient felt worse after discontinuation of heparin gtt, so it was resumed today. Discussed with Dr Pope - the patient will need either a DOAC or coumadin with a bridge. Insurance coverage is an issue - care management is working on a plan. Etiology still unclear: hypercoagulable state (nephrotic syndrome +/- other) vs atrial septal aneurysm/SVT potentially being at fault, though the location of the CVA is not likely to embolic. ?Need for BEVERLY - discussing with neurology. For now, continue heparin gtt, plavix, statin. Keep in the ICU. (2) Hyperlipidemia: Status: Chronic Assessment and plan: Lipids at goal. Continue statin. (3) Minimal change disease: Status: Chronic Assessment and plan: This presented with nephrotic syndrome >2 years ago in [place], in setting of NSAID use. Patient stated to Dr Pope that he has had several bouts of this. Currently [place] [facility] Previously on prednisone for this, but not at this time. Technically, the patient could be at a higher risk of being hypercoagulable. Hypercoagulable labs checked this am; pending. (4) Stress headaches: Status: Chronic Assessment and plan: Will need outpatient follow up. (5) Pre-diabetes: Status: Acute Assessment and plan: Diabetes education consulted. (6) Atrial septal aneurysm: Status: Acute Assessment and plan: Will need outpatient follow up with cardiology. (7) Nonsustained paroxysmal supraventricular tachycardia: Status: Acute Assessment and plan: Resting heart rate and BP would not permit initiation of a beta or a calcium channel hilario. (8) DVT prophylaxis: Status: Acute Assessment and plan: Heparin gtt resumed. (9) Discharge planning issues: Status: Acute Assessment and plan: Full code. Keep in ICU. Clarifying plan on which anticoagulation to discharge the patient on. Subjective Subjective Interval history since last seen: 1 hour after heparin gtt was d/c'ed, got blurred vision and numb tingly chin (new), which resolved after restarting heparin gtt. Now better. Per nursing, still dizzy, but able to walk fine, able to maintain balance. Equal strength. No nystagmus this am. Lungs clear. No abdominal complaint. On the monitor, he had had 2 bouts of SVT (8 beats, 10 beats) while asleep. The patient does state he is still dizzy to me, more so than yesterday. The chin symptoms have now resolved. Denies chest pain, shortness of breath, nausea. Exam Narrative Exam Narrative: General: Middle-aged male, laying comfortably in bed, fluent speech, conversant, unchanged from yesterday. Neuro: A&Ox3, slight L facial droop, CN II-XII intact, EOMI. Equal strength B. Subjective numbness/paresthesias LUE/LLE/L trunk. HEENT: EOMI, MMM Cardiovascular: RRR, no m/r/g Lungs: CTAB Gastrointestinal: soft, nontender, nondistended Extremities: no edema/clubbing/cyanosis of BLE's, trace pedal pulses B Objective Last Vital Signs Temp 36.8 C 03/22/20 04:00 Pulse 68 03/22/20 04:00 Resp 18 03/22/20 04:00 BP 102/55 L 03/22/20 06:10 Pulse Ox 98 03/22/20 04:00 Laboratory Results - last 24 hr 03/19/20 03/21/20 03/22/20 08:35 23:44 07:30 APTT 33.3 H 41.0 H D SARS-CoV-2 Source Nasal/nares SARS-CoV-2 (PCR) Not detected
[2020-03-22 08:23] LABS: Prothrombin Time 9.9 sec (9.3-11.0)
--- NOTE | 2020-03-22 09:43 | PHA.REVIEW ---
Pharmacy Admission Review - Admission Clinical Review (Last Reviewed 03/21/20 @ 16:58 by Leeanne Pope MD) Pre-diabetes (Acute) Right pontine stroke (Acute) Discharge planning issues (Acute) DVT prophylaxis (Acute) pain medication Adverse Reaction (Uncoded 03/19/20 14:22) Has Kidney disease Height 5 ft 7 in Weight 75.1 kg - Renal Dosing Renal Dosing: BUN 9 mg/dL (7-18) 03/21/20 06:20 Creatinine 0.75 mg/dL (0.70-1.30) 03/21/20 06:20 Medications needing adjustments: Reviewed (crcl ~104ml/min) - Anticoagulation Anticoagulation: Hgb 12.2 g/dL (13.5-17.5) L 03/20/20 06:20 Hct 36.9 % (40.0-50.0) L 03/20/20 06:20 Plt Count 207 10^3/uL (130-400) 03/20/20 06:20 INR 1.0 (0.9-1.1) 03/22/20 07:30 Creatinine 0.75 mg/dL (0.70-1.30) 03/21/20 06:20 DVT Prohphylaxis: Reviewed Medications: Heparin Therapeutic Anticoagulation: Reviewed Medications: Heparin - Relevant Labs ESR 15 mm/hr (0-15) 03/19/20 14:15 Sodium 140 mmol/L (136-145) 03/21/20 06:20 Potassium 3.8 mmol/L (3.5-5.1) 03/21/20 06:20 Chloride 110 mmol/L (98-107) H 03/21/20 06:20 Magnesium 1.8 mg/dL (1.8-2.4) 03/21/20 06:20 C-Reactive Protein 0.07 mg/dL (0.0-0.3) 03/19/20 14:15 - DM Control DM Control: Glucose 95 mg/dL (74-106) 03/21/20 06:20 Hemoglobin A1c 5.8 % (<5.7) H 03/20/20 06:20 Insulin Dosing: N/A - Heart Failure/AK Heart Failure/AK: Troponin I < 0.05 ng/mL (<0.06) 03/20/20 06:20 - BP Control BP Control: Blood Pressure [Left Arm] 108/80 Blood Pressure 108/80 Blood Pressure 102/55 Blood Pressure 102/55 Blood Pressure 110/52 Blood Pressure 89/55 Blood Pressure 89/55 Blood Pressure 106/58 Blood Pressure 102/62 Blood Pressure 102/62 Blood Pressure 114/69 Blood Pressure 114/69 If elevated: N/A - Home Meds Home Med List reviewed: Reviewed (NO HOME MEDS LISTED) - Current meds Current Medication Order Review: Reviewed - Comments Comments/Follow Ups: heparin drip resumed , neurology consulted. pt will need anticoagulation and CM working on insurance coverage to determine which med should be initiated
--- NOTE | 2020-03-22 12:00 | CMPROGNOTE_ITS ---
- If Service Date Differs Date of service: 03/22/20 Time of Service: 12:01 Care Management Progress Note S/O: CM met with Man in the room he is alert and states he is feeling improved today. His plan is to stay with his friend after discharge. CM reviewed insurance and benefits with him, and spoke with [facility] and community connections. Man has been approved for Medicaid starting March 20 2020. It should be active on 03/23/2020. CM also provided him with a patient assistance application to be completed. Man understands that he will need close follow up for medication management and status post CVA. He is alert and engaged in assessment and planning. Pending neurology and provider medications to be determined for discharge, CM will have prescriptions faxed and ensure coverage. A:Man is a 49 year old patient admitted with Pontine Stroke P:Anticipate Man will be discharged home when medically cleared by provider. He will follow up with his PCP, cardiology, and plan of care as directed. His friend, Hunter, will transport him home via private vehicle when ready. Medicaid will be active on 03/23/2020. CM will confirm with pharmacy that his prescriptions are covered prior to discharge. CM will continue to support patient and discharge planning needs.
--- NOTE | 2020-03-22 12:05 | W.INDIABCONS ---
Date of service: 03/22/20 Time of Service: 12:05 Diabetes Inpatient Consult DESCRIPTION/ASSESSMENT: Met with Man today in ICU s/p CVA. Man is 49 year old male with BMI wnl, who recently had A1C of 5.8% putting him in the prediabetic range. CVA has not affected his speach or swallowing. He reports weakness in left legs. Man reports that he eats mostly lean protein, vegetables and complex carbohydrates. He typically eats vegetarin but has started to include fish and chicken. He does not eat simple carbohydrates regularly. 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 Currently following regular meal plan with adequate intake to meet nutrient and fluid needs. Not at nutritional risk. Expect BS to normalize with increased exercise once cleared by MD INTERVENTION: Discussed balanced meals to reduce risk of elevated BS that could lead to Dm2 PLAN: continue regular diet follow up with keno writer/runner brian. Time Spent in Nutritional Counseling and Treatment: 10 min spent face to face
--- NOTE | 2020-03-22 16:04 | PGE_ITS ---
Date of Service Date of service: 03/22/20 Time of Service: 16:04 Assessment and Plan Assessment and plan (1) Right pontine stroke: Status: Acute (2) Pre-diabetes: Status: Acute Assessment and plan: Mr. 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 The most likely etiology is secondary to small vessel disease, however, he has no typical cardiovascular risk factors (new diagnosis of pre-diabetes only) and is of young age. His only possible risk factor is his history of recurrent nephrotic syndrome which is currently in remission. I don't think that Minimal Change confers hypercoaguability when NOT nephrotic. Screening for other hypercoagulability states including Lupus anticoagulant panel, protein C, protein S, antithrombin III, PT [id number], and APCR are all still pending (he has no FHx of DVT/PE). Given history of nephropathy and FH of brother requiring hea rt transplant, Fabry disease also remains in the differential. The location of his stroke rules out an embolic etiology. He is on clopidogrel 75mg daily for secondary stroke prevention (unable to take aspirin due to prior nephrotic syndrome). Cessation of herpain caused a resurgence in his symptoms which may be due to notorious pontine variability/stuttering or mean that he needs anticoagulation. Thus, we will continue anticoagulation with Eliquis 5mg BID. ADRs discussed with him. Case Management has been instrumental in getting him Medicaid and they will ensure medication coverage prior to his discharge. He should also continue atorvastatin at discharge for stroke prevention. Dose can be reduced to 10mg HS. He has met with the ems educator. We discussed Mediterranean diet. We discussed time for recovery and risk of mood ADRs following stroke. Given young age and unusual treatment course, he should follow-up in the [facility] Stroke clinic for further recommendations on work-up and treatment. He should follow-up in the [facility] Neurology Clinic in 2-3 months. Please call with any further questions or concerns. . Subjective Subjective Interval history since last seen: We stopped heparin yesterday. Within 2 hours, patient noted increased numbness in left hemibody. Heparin re-started. Otherwise doing well. Hypercoag panel drawn this am while on heparin + Plavix. Exam Narrative Exam Narrative: Physical Exam: Constitutional: Patient of apparent stated age, well nourished, well developed, no acute distress Neuro: MS/Language/Speech: Alert, oriented, clear language (fluency and comprehension), no dysarthria CN: EOMI, no facial asymmetry, hearing intact Motor: Normal bulk and tone. FMM intact, no pronator drift. Coordination: no ataxia Objective Last Vital Signs Temp 36.7 C 03/22/20 15:17 Pulse 50 L 03/22/20 15:06 Resp 19 03/22/20 15:06 BP 112/69 03/22/20 15:06 Pulse Ox 100 03/22/20 11:47 Laboratory Results - last 24 hr 03/21/20 03/22/20 03/22/20 23:44 07:30 07:30 PT 9.9 INR 1.0 APTT 33.3 H 41.0 H D JADEN Titer Cancelled JADEN Titer 2 Cancelled JADEN Titer 3 Cancelled JADEN Interpretation Cancelled
[2020-03-22] MEDS: Apixaban 5 MG TAB PO (19:43)
[2020-03-22] MEDS: Atorvastatin 40 MG TAB PO (19:44)
[2020-03-22] MEDS: Docusate Sodium 100 MG CAP PO (19:44)
[2020-03-23] VITALS (12 sets, daily range): BP systolic 96–102; BP diastolic 57–61; PULSE 50–84; RESP 15–23; TEMP 36.1–36.4; O2SAT 98–99
--- NOTE | 2020-03-23 08:12 | W.PM.PROGNOT ---
Subjective Subjective Interval history since last seen: no new neuro deficits this morning. Objective Last Vital Signs Temp 36.1 C L 03/23/20 03:53 Pulse 50 L 03/23/20 06:01 Resp 17 03/23/20 06:01 BP 97/57 L 03/23/20 06:01 Pulse Ox 99 03/23/20 03:53 Laboratory Results - last 24 hr 03/22/20 03/22/20 07:30 07:30 PT 9.9 INR 1.0 JADEN Titer Cancelled JADEN Titer 2 Cancelled JADEN Titer 3 Cancelled JADEN Interpretation Cancelled
[2020-03-23] MEDS: Cyanocobalamin 500 MCG TAB 1000 MCG PO (08:29)
[2020-03-23] MEDS: Clopidogrel 75 MG TAB PO (08:30)
[2020-03-23] MEDS: Famotidine 20 MG TAB PO (08:30)
[2020-03-23] MEDS: Apixaban 5 MG TAB PO (08:30)
--- NOTE | 2020-03-23 10:22 | CMDISCH_ITS ---
- If Service Date Differs Date of service: 03/23/20 Time of Service: 10:22 LACE Index Scoring Tool - Questions: Length of Stay (in days): 3 Acuity (Admit via E.D.?): Yes Comorbidities: Cerebrovascular Disease, Mild Liver/Renal Disease E.D. Visits: 1 - Answers: Total Score: 10 Risk of Readmission: High Risk Care Management Discharge Reason for Hospitalization: Suspected acute CVA. Discharge Plan: Man will be discharged home today with new Medicaid. KRUNAL has faxed referrals to [facility] for neurology and hematology with a request to contact Man directly for scheduling. KRUNAL submitted patient assistance forms to pt accounts. KRUNAL verified Medicaid is now active he was discharged with one day of medications until he could obtain his prescriptions. KRUNAL provided contact information for [facility] specialty services reviewed the plan for discharge and follow up. Man has this writers contact information for questions or concerns. Patient/Family Education Needs: Discharge plan, instructions and follow up.
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
[2020-03-23 17:10] LABS: Lyme Ab w Rflx to Lyme Confirm Negative (Negative)
[2020-03-23 20:39] LABS: Anaplasma phagocytophilum Negative (Negative); B. miyamotoi PCR Negative (Negative); Babesia divergens/MO-1 Negative (Negative); Babesia duncani Negative (Negative); Babesia microti Negative (Negative); Ehrlichia chaffeensis Negative (Negative); Ehrlichia ewingii/canis Negative (Negative); Ehrlichia muris eauclairensis Negative (Negative)
[2020-03-24 11:45] LABS: Protein S Ag, Free 116 % (65 - 160)
[2020-03-25 14:32] LABS: ANA Interpretation 0.7 U (Negative)
[2020-03-25 15:02] LABS: Protein C Ag, P 89 % (70-150)
[2020-03-25 16:42] LABS: Prothrombin G20210A Mutation Negative (Negative)
[2020-03-31 09:14] LABS: Dilute Russell Viper Venom 31.9 secs; Silica Clotting Time 41.6 secs
[2020-03-31 09:23] LABS: LA Cascade Summary (See Note)
--- NOTE | 2020-04-07 15:11 | ZIOP_ITS ---
Date of service: 04/07/20 Time of Service: 15:11 14 Day Commercial Kitchen Service Technician Referring Provider:: Cassandra Lombardi Indications:: Stroke Note: This was a 14-day monitor Predominant rhythm was sinus with an average heart rate of 66 bpm. Minimum h eart rate was 37, occurring during sleep, sinus bradycardia Maximum heart rate was 122 There were no ventricular dysrhythmias There were very rare atrial premature beats and atrial pairs. There was no supraventricular tachycardia There was no atrial fibrillation, pauses greater than 3 seconds, or high-grade AV block
[2020-04-08 11:53] LABS: Antithrombin 3, Funct. 100 % (85-125)
== END 2020-03-23 16:40 | disposition home or self-care (01) | DRG 65 ==
LOC: ER 15:03 → ICU 15:19
PROVIDERS: General Practice; Psychiatry & Neurology Neurology; Student in an Organized Health Care Education/Training Program; Admitting Provider Internal Medicine; Emergency Provider Emergency Medicine; PCP General Practice; Visit Provider Internal Medicine
DX: I63.9 Cerebral infarction, unspecified (principal); I25.3 Aneurysm of heart; I47.1 Supraventricular tachycardia; G81.94 Hemiplegia, unspecified affecting left nondominant side; R73.03 Prediabetes; R20.0 Anesthesia of skin; R47.1 Dysarthria and anarthria; E78.5 Hyperlipidemia, unspecified; N05.0 Unspecified nephritic syndrome with minor glomerular abnormality; H53.8 Other visual disturbances; E53.8 Deficiency of other specified B group vitamins; Z11.59 Encounter for screening for other viral diseases
CPT/HCPCS: 0296T; 36415; 36416; 70496; 70498; 80048; 80053; 80061; 80307; 81240; 82805; 82962; 84145; 85300; 85305; 85307; 85652; 87116; 87798; 93005; 96361; 96365; 96366; 96372; 96376; 97161; 99223; 99233; 99239; 99285; 99291; U0003; 70551; 80320; 81003; 82140; 82607; 82728; 83036; 83735; 84439; 84443; 84484; 85025; 85379; 85610; 85730; 86038; 86140; 86618; 93010; 93306; 93970; J1644; J3490

== ENCOUNTER 2020-05-24 23:11 | Emergency (ER) | payer MEDICAID, SELFPAY ==
--- NOTE | 2020-05-24 23:00 | RT.EKG_ITS ---
APPROVED REPORT Exam: Resting ECG Patient Location: E HR:56 bpm ECG Measurements Heart Rate 56 AXIS NJ 206 P 64 QRSd 85 QRS 80 QT 393 T 47 QTc 381 Conclusion Sinus bradycardia...rate< 60 Borderline prolonged NJ interval...NJ >202, V-rate 50- 90 Probable left atrial enlargement...P >50mS, <-0.10mV V1 ST elev, probable normal early repol pattern...ST elevation, age<55
--- NOTE | 2020-05-24 23:00 | DI.CT_ITS ---
EXAM: CT HEAD WO CLINICAL HISTORY: headache. TECHNIQUE: Imaging Protocol: Axial computed tomography images with coronal and sagittal reformatted images were created and reviewed COMPARISON: CT CT BRAIN NECK CTA from 03/19/2020 FINDINGS: There are no skull fractures nor fluid in the visualized paranasal sinuses. There is no evidence of intracranial hemorrhage, mass effect, or shift of midline structures. There are no extra-axial fluid collections. The ventricles are not enlarged or shifted and there is no blo od within the ventricular system nor within the basal cisterns. IMPRESSION: No acute intracranial findings on this noninfused CT scan of the brain. RADIATION DOSE DELIVERED: 821.91mGy.cm Total DLP DATA REPOSITORY: All CT scans at this facility are submitted to the National Radiology Data Registry (NRDR) Dose Index Registry (DIR) with the [employer] (ACR). RADIATION OPTIMIZATION: All CT scans at this facility use at least one of these dose optimization te chniques: automated exposure control; mA and/or kV adjustment per patient size (includes targeted exa ms where dose is matched to clinical indication); or iterative reconstruction.
[2020-05-24 23:03] VITALS: BP 118/83; PULSE 64; RESP 16; TEMP 37; O2SAT 98
[2020-05-24 23:11] VITALS: RESP 16
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
[2020-05-24 23:45] LABS: Abs Immature Grans 0.03 10^3/uL (0.0-0.06); Absolute Basophil Count 0.04 10^3/uL (0.0-0.2); Absolute Eosinophil Count 0.19 10^3/uL (0.0-0.7); Absolute Lymphocyte Count 2.18 10^3/uL (1.2-3.4); Absolute Monocyte Count 0.77 10^3/uL (0.1-0.8); Absolute Neutrophil Count 3.02 10^3/uL (1.2-6.7); Basophils % 0.6; HCT 38.4 % (40.0-50.0); HGB 12.7 g/dL (13.5-17.5); Immature Grans % 0.5; MCH 30.6 pg (27.0-33.0); MCHC 33.1 % (32.0-36.0); MCV 92.5 fL (80-95); MPV 10.8 fL (8.0-11.0); Monocytes % 12.4; Neutrophils % 48.5; Nucleated RBC 0 %; Platelet Count 222 10^3/uL (130-400); RBC 4.15 10^6/uL (4.36-5.78); RDW 12.4 % (11.8-14.1); RDW-SD 42.1 fL; WBC 6.23 10^3/uL (4.4-10.8)
--- NOTE | 2020-05-24 23:59 | DI.CT_ITS ---
EXAM: CT CHEST PE CTA CLINICAL HISTORY: chest pain and dyspnea. TECHNIQUE: Imaging Protocol: CT angiography of the chest was performed using pulmonary embolus bill col. Multi planar reconstructions were performed. CONTRAST MATERIAL: Intravenous: Omnipaque 350 Contrast volume: 67 cc COMPARISON: CT CT BRAIN NECK CTA from 03/19/2020 FINDINGS: CHEST: PULMONARY ARTERIES: There are no intraluminal filling defects to suggest acute pulmonary emboli. LUNGS: There are no infiltrates nor evidence of pulmonary infarction.. There are no pleural effusion s. MEDIASTINUM: There is no hilar nor mediastinal adenopathy. Visualized thyroid unremarkable. CARDIAC: Heart size is normal. There is no pericardial effusion.Caliber of the thoracic aorta is wit hin normal limits. There is no evidence of shift of the interventricular septum. PARTIALLY VISUALIZED UPPERMOST ABDOMEN: No obvious findings OSSEOUS: No significant osseous lesions.. IMPRESSION: 1. No evidence of acute pulmonary emboli. No evidence of pulmonary infarction.No pleural effusions. RADIATION DOSE DELIVERED: LINK-TO-SR Total DLP DATA REPOSITORY: All CT scans at this facility are submitted to the National Radiology Data Registry (NRDR) Dose Index Registry (DIR) with the [employer] (ACR). RADIATION OPTIMIZATION: All CT scans at this facility use at least one of these dose optimization te chniques: automated exposure control; mA and/or kV adjustment per patient size (includes targeted exa ms where dose is matched to clinical indication); or iterative reconstruction.
[2020-05-25 00:02] LABS: PTT Activated 25.5 sec (21.0-27.5); Prothrombin Time 10.4 sec (9.3-11.0)
[2020-05-25 00:04] LABS: ALT 28 U/L (16-63); AST 19 U/L (15-37); Albumin 3.6 g/dL (3.4-5.0); Alkaline Phosphatase 75 U/L (46-116); Anion Gap 8.9 mmol/L (3-11); BUN 22 mg/dL (7-18); Bilirubin, Total 0.3 mg/dL (0.2-1.0); CO2 23.1 mmol/L (21.0-32.0); CREATININE 0.87 mg/dL (0.70-1.30); Chloride 109 mmol/L (98-107); Glucose 107 mg/dL (74-106); Lipase 151 U/L (73-393); Potassium 3.3 mmol/L (3.5-5.1); Sodium 141 mmol/L (136-145); Total Protein 6.7 g/dL (6.4-8.2); Troponin I < 0.05 ng/mL (<0.06)
[2020-05-25] MEDS: Omnipaque 350 MG/ML 100 ML BTL IJ (00:17)
[2020-05-25] MEDS: Normal Saline - Diluent 50 ML VIAL IV (00:18)
[2020-05-25] MEDS: Normal Saline Flush 10 ML SYR IVP (00:18)
--- NOTE | 2020-05-25 00:33 | DI.VRAD_ITS ---
PROCEDURE INFORMATION: Exam: CT Angiography Chest With Contrast Exam date and time: 05/24/2020 12:03 AM Age: 50 years old Clinical indication: Prior surgery; Surgery date: 6+ months; Surgery type: Clavicle repair in 2017; Patient HX: Chest pain and dyspnea TECHNIQUE: Imaging protocol: Computed tomographic angiography of the chest with intravenous contrast. 3D rendering (Not supervised by radiologist): MIP and/or 3D reconstructed images were created by the technologist. Radiation optimization: All CT scans at this facility use at least one of these dose optimization techniques: automated exposure control; mA and/or kV adjustment per patient size (includes targeted exams where dose is matched to clinical indication); or iterative reconstruction. Contrast material: OMNIPAQUE 350; Contrast volume: 67 ml; Contrast route: INTRAVENOUS (IV); COMPARISON: No relevant prior studies available. FINDINGS: Pulmonary arteries: No pulmonary emboli. Aorta: No aortic aneurysm. No aortic dissection. Lungs: No consolidation. No masses. Minimal subsegmental atelectasis versus scarring Pleural space: No pneumothorax. No pleural effusion. Heart: No cardiomegaly. No pericardial effusion. Lymph nodes: No enlarged lymph nodes. Bones/joints: Plate and screws in the left clavicle No acute fracture. Soft tissues: Unremarkable. IMPRESSION: No pulmonary emboli observed Dictated and Authenticated by: Osman Peter MD. Ordering:DESMOND Snell MD
--- NOTE | 2020-05-25 00:36 | DI.VRAD_ITS ---
PROCEDURE INFORMATION: Exam: CT Head Without Contrast Exam date and time: 05/24/2020 11:12 PM Age: 50 years old Clinical indication: Pain; Headache not specified; Patient HX: Headache, PT had stroke on 03/19/20 TECHNIQUE: Imaging protocol: Computed tomography of the head without contrast. Radiation optimization: All CT scans at this facility use at least one of these dose optimization techniques: automated exposure control; mA and/or kV adjustment per patient size (includes targeted exams where dose is matched to clinical indication); or iterative reconstruction. COMPARISON: CT BRAIN NECK CTA 03/19/2020 7:45 AM FINDINGS: Brain: Mild volume loss.No hemorrhage. Mild white matter disease. No mass effect. Cerebral ventricles: No ventriculomegaly. Bones/joints: Unremarkable. No acute fracture. Paranasal sinuses: Visualized sinuses are unremarkable. No fluid levels. Mastoid air cells: Visualized mastoid air cells are well aerated. Soft tissues: Unremarkable. IMPRESSION: No acute intracranial abnormality. Dictated and Authenticated by: Osman Peter MD. Ordering:DESMOND Snell MD
[2020-05-25 00:48] VITALS: BP 106/69; PULSE 55; PULSE 57; RESP 14; O2SAT 97
[2020-05-25 02:58] LABS: Troponin I < 0.05 ng/mL (<0.06)
[2020-05-25 03:28] VITALS: BP 104/59; PULSE 57; RESP 16; O2SAT 96
--- NOTE | 2020-05-25 03:44 | NUR.NOTE ---
IV removed, discharge instructions reviewed with verbal understanding. Aware to f/u with pcp this week. RCT called for transport home. Awaiting call back
== END 2020-05-25 05:27 | disposition home or self-care (01) ==
PROVIDERS: Emergency Provider Emergency Medicine; PCP General Practice
DX: R09.89 Other specified symptoms and signs involving the circulatory and respiratory systems (principal); R61 Generalized hyperhidrosis; R29.701 NIHSS score 1; R51.9 Headache, unspecified
CPT/HCPCS: 36415; 71275; 80053; 83690; 93005; 99285; 70450; 83735; 84484; 85025; 85610; 85730; 93010; J3490

== ENCOUNTER 2020-05-27 11:20 | Outpatient (CLI) | payer MEDICAID, SELFPAY ==
[2020-05-28 19:25] LABS: COVID-19 RT-PCR Result NEGATIVE (Negative)
== END 2020-05-27 11:40 ==
PROVIDERS: PCP General Practice; Visit Provider Family Medicine Adult Medicine
DX: R43.0 Anosmia (principal)
CPT/HCPCS: U0003

== ENCOUNTER 2020-08-14 09:47 | Observation (INO) | payer MEDICAID, SELFPAY ==
[2020-08-14] VITALS (46 sets, daily range): BP systolic 102–133; BP diastolic 55–74; PULSE 49–96; RESP 10–36; TEMP 36.4–36.7; O2SAT 97–100
--- NOTE | 2020-08-14 09:45 | RT.EKG_ITS ---
APPROVED REPORT Exam: Resting ECG Patient Location: E HR:66 bpm ECG Measurements Heart Rate 66 AXIS VT 197 P 74 QRSd 86 QRS 72 QT 393 T 24 QTc 413 Conclusion Sinus rhythm...normal P axis, V-rate 60- 99 Probable left atrial enlargement...P >50mS, <-0.10mV V1 I have reviewed and interpreted ECG and agree with software generated interpretation.
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
[2020-08-14] MEDS: Omnipaque 350 MG/ML 100 ML BTL IJ (10:23)
[2020-08-14] MEDS: Normal Saline - Diluent 50 ML VIAL IV (10:24)
[2020-08-14] MEDS: Normal Saline Flush 10 ML SYR IVP ×3 (10:24→14:44)
--- NOTE | 2020-08-14 10:41 | DI.CT_ITS ---
EXAM: CT BRAIN NECK CTA CLINICAL HISTORY: L sided headache, dizzy, blurry vision, r/o CVA. TECHNIQUE: Imaging Protocol: Axial CT angiography was performed with multi-slice acquisition and mu lti-planar and/or 3D reconstructions. CONTRAST MATERIAL: Intravenous: Omnipaque 350 Contrast volume:structured data in ml COMPARISON: CT CT CHEST PE CTA from 05/25/2020 FINDINGS: CTA Neck W: Aortic arch anatomy: The aortic arch anatomy is conventional.. Anterior circulation: There is no significant stenosis at the origin of the common carotid arteries and both common carotid arteries ascend with normal luminal diameters. There is no significant atherosclerotic narrowing at the carotid bifurcations. There is mild plaque on the medial aspect of the right carotid bifurcatio n and extending into the proximal internal carotid artery but with only approximately 10 percent sten osis at this level. The right internal carotid artery above this level in the neck is patent and is demonstrated to be patent in the skull base-carotid canal. The left carotid bifurcation is unremarka ble as is the left internal carotid artery in the neck. Posterior circulation: Both vertebral arteries originated conventional fashion off of the subclavian arteries. There is no significant stenosis at the origin of these vessels off of the subclavian arteries nor significant st enosis in the subclavian arteries proximal to the vertebral artery takeoff points. The left vertebra l artery is dominant. Both vertebral arteries ascend within the foramen transversarium without intra luminal thrombus nor dissection. The main contributor to the formation of the basilar artery at the skull base is the left vertebral artery. The right vertebral artery also contributes at this level b ut this is a thinner vessel. CTA Brain W: Anterior circulation: Internal carotid arteries are patent in the skull base-carotid canals as well as within the cavernous sinuses and supraclinoid aspect of these vessels are patent and nonaneurysmal. Both middle cerebral arteries are patent out to the sylvian fissure branches. Both A1 segments are patent as are both an terior cerebral arteries and there is no evidence of aneurysm at the level of the anterior communicat ing artery. Posterior circulation: Basilar artery is formed by the dominant left vertebral artery and smaller right vertebral artery and ascends with normal luminal diameter. Distally it gives off both superior cerebellar arteries and i mmediately above this level terminates as bilateral patent posterior cerebral arteries. There is a c yst thin posterior communicating artery on the right side of the [id number]. There is no evide nce of aneurysm at the tip of the basilar artery CT BRAIN: There is no evidence of intracranial hemorrhage, mass effect, or shift of midline structure s. No extra-axial fluid collections. Ventricles are not enlarged or shifted. There is some bilater al periventricular hypodensity consistent with chronic small vessel disease. The there are no ring e nhancing lesions in the brain. Is no abnormal meningeal enhancement, focal nor diffuse. IMPRESSION: 1. No significant atherosclerotic narrowing of the carotid arteries in the neck. The left vertebral artery is dominant. No evidence of vertebral artery thrombosis nor dissection. 2. Patent intracerebral arteries. 3. White matter chronic small vessel changes. No evidence of intracranial hemorrhage. No ring enh ancing lesions in the brain. RADIATION DOSE DELIVERED: 1,791.52mGy.cm Total DLP DATA REPOSITORY: All CT scans at this facility are submitted to the National Radiology Data Registry (NRDR) Dose Index Registry (DIR) with the [employer] ([employer]). RADIATION OPTIMIZATION: All CT scans at this facility use at least one of these dose optimization te chniques: automated exposure control; mA and/or kV adjustment per patient size (includes targeted exa ms where dose is matched to clinical indication); or iterative reconstruction.
[2020-08-14] MEDS: Normal Saline 1,000 ML 1000 ML IV (10:50)
[2020-08-14 11:01] LABS: Abs Immature Grans 0.01 10^3/uL (0.0-0.06); Absolute Basophil Count 0.04 10^3/uL (0.0-0.2); Absolute Eosinophil Count 0.13 10^3/uL (0.0-0.7); Absolute Lymphocyte Count 1.61 10^3/uL (1.2-3.4); Absolute Monocyte Count 0.69 10^3/uL (0.1-0.8); Absolute Neutrophil Count 2.22 10^3/uL (1.2-6.7); Basophils % 0.9; Eosinophils % 2.8; HCT 42.1 % (40.0-50.0); HGB 14.1 g/dL (13.5-17.5); Immature Grans % 0.2; Lymphocytes % 34.3; MCH 30.7 pg (27.0-33.0); MCHC 33.5 % (32.0-36.0); MCV 91.7 fL (80-95); MPV 10.6 fL (8.0-11.0); Monocytes % 14.7; Neutrophils % 47.1; Nucleated RBC 0 %; Platelet Count 249 10^3/uL (130-400); RBC 4.59 10^6/uL (4.36-5.78); RDW 12.2 % (11.8-14.1); RDW-SD 41.1 fL
[2020-08-14 11:12] LABS: PTT Activated 25.1 sec (21.0-27.5); Prothrombin Time 10.1 sec (9.3-11.0)
[2020-08-14 11:14] LABS: ALT 31 U/L (16-63); AST 22 U/L (15-37); Alkaline Phosphatase 79 U/L (46-116); Anion Gap 13.3 mmol/L (3-11); BUN 19 mg/dL (7-18); Bilirubin, Total 0.5 mg/dL (0.2-1.0); CO2 22.7 mmol/L (21.0-32.0); CREATININE 0.8 mg/dL (0.70-1.30); Calcium 9.6 mg/dL (8.5-10.1); Chloride 105 mmol/L (98-107); Glucose 98 mg/dL (74-106); Magnesium 1.9 mg/dL (1.8-2.4); Potassium 3.7 mmol/L (3.5-5.1); Sodium 141 mmol/L (136-145); Total Protein 7.5 g/dL (6.4-8.2); Troponin I < 0.05 ng/mL (<0.06)
--- NOTE | 2020-08-14 11:15 | DI.RAD_ITS ---
EXAM: XR PORTABLE CHEST AP CLINICAL HISTORY: possible cva, r/o acute disease. TECHNIQUE: 2D digital imaging was performed. COMPARISON: No exams were available for comparison FINDINGS: Heart size is normal. The mediastinum is not widened. Right lung is clear. There is subsegmental platelike atelectasis in the lingular segment of the left lung. Fusion plate is noted across a healed left clavicle midshaft fracture site. IMPRESSION: Subsegmental platelike atelectasis in the lingular segment of the left lung. No other significant pu lmonary findings nor pleural effusions. DATA REPOSITORY: RADIATION DOSE DELIVERED: All CT scans at this facility use at least one of these dose optimization techniques: automated exposure control; mA and/or kV adjustment per patient size (includes targeted e xams where dose is matched to clinical indication); or iterative reconstruction.
--- NOTE | 2020-08-14 11:38 | DI.VRAD_ITS ---
PROCEDURE INFORMATION: Exam: CT Angiography Head With Contrast, Arteries Exam date and time: 08/14/2020 10:31 AM Age: 50 years old Clinical indication: Other: L sided headache, dizzy, blurry vision, R/O CVA TECHNIQUE: Imaging protocol: Computed tomography angiography of the head with intravenous contrast. 3D rendering (Not supervised by radiologist): MIP and/or 3D reconstructed images were created by the technologist. Radiation optimization: All CT scans at this facility use at least one of these dose optimization techniques: automated exposure control; mA and/or kV adjustment per patient size (includes targeted exams where dose is matched to clinical indication); or iterative reconstruction. Contrast material: OMNIPAQUE 350; Contrast volume: 85 ml; Contrast route: INTRAVENOUS (IV); COMPARISON: No relevant prior studies available. FINDINGS: ANTERIOR CIRCULATION: Right internal carotid artery: Unremarkable. Intracranial segment is patent with no significant stenosis. No aneurysm. Right middle cerebral artery: Unremarkable. No occlusion or significant stenosis. No aneurysm. Right anterior cerebral artery: Unremarkable. No occlusion or significant stenosis. No aneurysm. Left internal carotid artery: Unremarkable. Intracranial segment is patent with no significant stenosis. No aneurysm. Left middle cerebral artery: Unremarkable. No occlusion or significant stenosis. No aneurysm. Left anterior cerebral artery: Unremarkable. No occlusion or significant stenosis. No aneurysm. POSTERIOR CIRCULATION: Right vertebral artery: Unremarkable. No occlusion or significant stenosis. No aneurysm. Left vertebral artery: Unremarkable. No occlusion or significant stenosis. No aneurysm. Basilar artery: Unremarkable. No occlusion or significant stenosis. No aneurysm. Right posterior cerebral artery: Unremarkable. No occlusion or significant stenosis. No aneurysm. Left posterior cerebral artery: Unremarkable. No occlusion or significant stenosis. No aneurysm. Brain: No definite mass, mass effect, or midline shift. Cerebral ventricles: No ventriculomegaly. Bones/joints: Unremarkable. No acute fracture. Soft tissues: Unremarkable. IMPRESSION: No large vessel stenosis or occlusion. PROCEDURE INFORMATION: Exam: CT Angiography Neck With Contrast Exam date and time: 08/14/2020 10:31 AM Age: 50 years old Clinical indication: Other: L sided headache, dizzy, blurry vision, R/O CVA TECHNIQUE: Imaging protocol: Computed tomography angiography of the neck with intravenous contrast. 3D rendering (Not supervised by radiologist): MIP and/or 3D reconstructed images were created by the technologist. Radiation optimization: All CT scans at this facility use at least one of these dose optimization techniques: automated exposure control; mA and/or kV adjustment per patient size (includes targeted exams where dose is matched to clinical indication); or iterative reconstruction. Contrast material: OMNIPAQUE 350; Contrast volume: 85 ml; Contrast route: INTRAVENOUS (IV); COMPARISON: No relevant prior studies available. FINDINGS: Right common carotid artery: No stenosis. No dissection or occlusion. Right internal carotid artery: No stenosis of the extracranial segment. No dissection or occlusion. Right external carotid artery: No occlusion or stenosis of the origin. Right vertebral artery: No stenosis. No dissection or occlusion. Left common carotid artery: No stenosis. No dissection or occlusion. Left internal carotid artery: No stenosis of the extracranial segment. No dissection or occlusion. Left external carotid artery: No occlusion or stenosis of the origin. Left vertebral artery: No stenosis. No dissection or occlusion. Bones/joints: No acute fracture. Soft tissues: Normal. No significant soft tissue swelling. IMPRESSION: No stenosis or occlusion. REFERENCES: NASCET CRITERIA. The degree of internal carotid artery stenosis is based on NASCET criteria. Normal is no stenosis. Mild is less than 50% stenosis. Moderate is 50-69% stenosis. Severe is 70% to 99% stenosis. Total occlusion is no detectable patent lumen. Dictated and Authenticated by: Chris Perkins MD. Ordering:JUSTICE Vega MD
--- NOTE | 2020-08-14 11:45 | DI.VRAD_ITS ---
PROCEDURE INFORMATION: Exam: XR Chest Exam date and time: 08/14/2020 11:33 AM Age: 50 years old Clinical indication: Other: Possible CVA, R/O acute disease TECHNIQUE: Imaging protocol: XR of the chest Views: 1 view. COMPARISON: CT CHEST PE CTA 05/25/2020 12:02 AM FINDINGS: Lungs: Unremarkable. No consolidation. Pleural spaces: Unremarkable. No pleural effusion. No pneumothorax. Heart/Mediastinum: Unremarkable. No cardiomegaly. Bones/joints: Stable ORIF of left clavicle fracture. IMPRESSION: No acute cardiopulmonary findings. Dictated and Authenticated by: Chris Perkins MD. Ordering:JUSTICE Vega MD
[2020-08-14] MEDS: Clopidogrel 75 MG TAB PO (12:31)
[2020-08-14] MEDS: Normal Saline 1,000 ML 125 ML IV ×2 (14:44→22:17)
[2020-08-14 15:06] LABS: COVID-19 PCR Negative (Negative); Source Nasal/Nares
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
[2020-08-14] MEDS: Famotidine 20 MG TAB PO (19:41)
[2020-08-14] MEDS: Atorvastatin 10 MG TAB PO (21:16)
[2020-08-15] VITALS (8 sets, daily range): BP systolic 102–121; BP diastolic 59–76; PULSE 52–69; RESP 16–20; TEMP 36.3–36.9; O2SAT 98–100
[2020-08-15] MEDS: Normal Saline 1,000 ML 125 ML IV (05:57)
[2020-08-15 06:47] LABS: Abs Immature Grans 0.01 10^3/uL (0.0-0.06); Absolute Basophil Count 0.05 10^3/uL (0.0-0.2); Absolute Eosinophil Count 0.18 10^3/uL (0.0-0.7); Absolute Lymphocyte Count 1.71 10^3/uL (1.2-3.4); Absolute Monocyte Count 0.61 10^3/uL (0.1-0.8); Absolute Neutrophil Count 1.85 10^3/uL (1.2-6.7); Basophils % 1.1; Eosinophils % 4.1; HCT 38.8 % (40.0-50.0); HGB 12.5 g/dL (13.5-17.5); Immature Grans % 0.2; Lymphocytes % 38.8; MCH 30.3 pg (27.0-33.0); MCHC 32.2 % (32.0-36.0); MCV 94.2 fL (80-95); MPV 10.5 fL (8.0-11.0); Monocytes % 13.8; Nucleated RBC 0 %; Platelet Count 200 10^3/uL (130-400); RBC 4.12 10^6/uL (4.36-5.78); RDW 12.5 % (11.8-14.1); RDW-SD 43.4 fL; WBC 4.41 10^3/uL (4.4-10.8)
[2020-08-15 06:57] LABS: BUN 13 mg/dL (7-18); CREATININE 0.7 mg/dL (0.70-1.30); Calcium 8.5 mg/dL (8.5-10.1); Chloride 111 mmol/L (98-107); Glucose 94 mg/dL (74-106); Magnesium 1.9 mg/dL (1.8-2.4); Sodium 142 mmol/L (136-145)
--- NOTE | 2020-08-15 07:30 | DI.MRI_ITS ---
EXAM: MR BRAIN WO CLINICAL HISTORY: r/o cva, dizziness TECHNIQUE: Multiplanar multisequence MRI of the brain was performed. COMPARISON: MR MR BRAIN WO from 03/21/[address]. Brain CT scan 08/14/2020 also reviewed FINDINGS: CEREBRAL PARENCHYMA: No evidence of intracranial hemorrhage, mass effect nor shift of midline structu re. No extraaxial fluid collections. Ventricles are not enlarged nor shifted. There is no significant focal signal abnormality in the cerebellar hemispheres. There is small focus of signal abnormality measuring 4 x 3 millimeters right of center at the junction of the posterior p ons and right peduncle. This was previously described as an area of focal infarct on the prior MRI s can of 03/21/2020. It is slightly decreased in size and no longer exhibits abnormal signal on DWI. There is no hemorrhage or surrounding edema. Again noted are multiple foci of white matter signal abnormality in the [place] and supraventricular whi te matter. The largest of these is in the right periventricular region and measures 1.8 x 0.8 cm. N one of these are associated with hemorrhage nor surrounding edema. These findings are unchanged from the prior study. There is also no significant focal signal increase at these levels on diffusion imaging to suggest ac [place] ischemic event. PITUITARY GLAND: No mass nor parasellar abnormality. No obvious abnormality in the cavernous sinuses. FLOW VOIDS: The expected flow void are noted. No evidence of obvious aneurysm nor obvious vascular ma lformation. The left vertebral artery is dominant. PARANASAL SINUSES: The visualized paranasal sinuses appear unremarkable. No obvious finding ORBITS: No obvious findings. IMPRESSION: Compared to the prior MRI scan of 03/21/2020 there again noted multiple foci periventricular white ma tter signal abnormality which are probably consistent with chronic ischemic disease, unchanged. The previously described area of restricted diffusion on the right side of the midbrain colliculus re gion is again noted but presently does not exhibit abnormal signal on diffusion imaging. It has not increased in size. There is no surrounding edema. There are no new acute infarcts evident and no ev idence of intracranial hemorrhage. DATA REPOSITORY:
[2020-08-15] MEDS: Famotidine 20 MG TAB PO (07:42)
[2020-08-15] MEDS: Magnesium Gluconate 500 MG TAB PO (07:42)
[2020-08-15] MEDS: Cholecalciferol (Vitamin D3) 1,000 UNIT TAB 4000 UNITS PO (07:42)
[2020-08-15] MEDS: Clopidogrel 75 MG TAB PO (07:42)
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
[2020-08-15] MEDS: diazePAM 2 MG TAB PO (13:33)
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
== END 2020-08-15 18:35 | disposition home or self-care (01) ==
LOC: ER 13:32 → MS 16:19
PROVIDERS: Nurse Practitioner Family; Admitting Provider Internal Medicine; Emergency Provider Physician Assistant; PCP General Practice; Visit Provider Internal Medicine
DX: G43.009 Migraine without aura, not intractable, without status migrainosus (principal); R42 Dizziness and giddiness; E78.5 Hyperlipidemia, unspecified; I69.398 Other sequelae of cerebral infarction; H53.8 Other visual disturbances; R20.2 Paresthesia of skin; N04.9 Nephrotic syndrome with unspecified morphologic changes; R73.03 Prediabetes
CPT/HCPCS: 36415; 36416; 70496; 70498; 80048; 80053; 82962; 87635; 93005; 96360; 96361; 97162; 97530; 99220; 99223; 99239; 99285; 70551; 71045; 83735; 84484; 85025; 85610; 85730; 93010; 99217; G0378; J3490

== ENCOUNTER 2020-08-24 20:59 | Emergency (ER) | payer MEDICAID, SELFPAY ==
[2020-08-24 21:03] VITALS: BP 126/82; PULSE 63; RESP 18; TEMP 36.5; O2SAT 99
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
[2020-08-24] MEDS: Normal Saline 1,000 ML 1000 ML IV (21:28)
[2020-08-24] MEDS: Dexamethasone 10 MG/ML VIAL IVP (21:28)
[2020-08-24] MEDS: Ondansetron 4 MG/2 ML VIAL IVP (21:29)
[2020-08-24 22:30] VITALS: BP 115/57; PULSE 68; RESP 18; O2SAT 98
[2020-08-24 22:33] VITALS: BP 115/57; PULSE 68; RESP 18; O2SAT 98
== END 2020-08-24 22:43 | disposition home or self-care (01) ==
PROVIDERS: Emergency Provider Emergency Medicine; PCP General Practice
DX: G43.909 Migraine, unspecified, not intractable, without status migrainosus (principal)
CPT/HCPCS: 96361; 96374; 96375; 99284; 99283; J1100; J2405

== ENCOUNTER 2020-11-22 16:36 | Outpatient (REF) | payer MEDICAID, SELFPAY ==
[2020-11-22 14:40] LABS: PROTEIN < 6.0 mg/dL
[2020-11-22 14:42] LABS: COMMENT (LAB VIEW ONLY) 24.61 mg/dL
== END 2020-11-22 16:37 | disposition home or self-care (01) ==
LOC: LBN 16:36
PROVIDERS: PCP Nurse Practitioner Family; Visit Provider Internal Medicine Nephrology
DX: N05.0 Unspecified nephritic syndrome with minor glomerular abnormality (principal)
CPT/HCPCS: 82565; 84156

== ENCOUNTER 2020-12-15 04:00 | Outpatient (CLI) | payer MEDICAID, SELFPAY ==
[2020-12-15 13:03] LABS: ALT 23 U/L (16-63); AST 24 U/L (15-37); Albumin 4.4 g/dL (3.4-5.0); Alkaline Phosphatase 69 U/L (46-116); Anion Gap 10.3 mmol/L (3-11); BUN 11 mg/dL (7-18); Bilirubin, Total 0.7 mg/dL (0.2-1.0); CO2 26.7 mmol/L (21.0-32.0); CREATININE 0.8 mg/dL (0.70-1.30); Calcium 9.6 mg/dL (8.5-10.1); Calculated LDL 57 mg/dL (<100); Chloride 107 mmol/L (98-107); Cholesterol 138 mg/dL (<200); Glucose 81 mg/dL (74-106); HDL Cholesterol 76 mg/dL (40-60); Potassium 4.2 mmol/L (3.5-5.1); Sodium 144 mmol/L (136-145); Total Protein 7.4 g/dL (6.4-8.2); Triglyceride 27 mg/dL (<150)
[2020-12-15 13:06] LABS: Hemoglobin A1C 5.8 % (<5.7)
[2020-12-15 23:08] LABS: PSA, Screening 0.8 ng/mL (0.0-3.5)
== END 2020-12-15 04:01 | disposition home or self-care (01) ==
PROVIDERS: PCP Nurse Practitioner Family; Visit Provider Nurse Practitioner Family
DX: E78.5 Hyperlipidemia, unspecified (principal); N03.0 Chronic nephritic syndrome with minor glomerular abnormality; Z13.1 Encounter for screening for diabetes mellitus; Z12.5 Encounter for screening for malignant neoplasm of prostate
CPT/HCPCS: 36415; 80053; 80061; 84153; 83036

== ENCOUNTER 2021-01-12 18:03 | Emergency (ER) | payer MEDICAID, SELFPAY ==
[2021-01-12] VITALS (16 sets, daily range): BP systolic 99–120; BP diastolic 43–70; PULSE 43–57; RESP 14–18; TEMP 36.7; O2SAT 96–100
--- NOTE | 2021-01-12 18:15 | DI.CT_ITS ---
Exam(s) CT HEAD WO EXAM: CT HEAD WO CLINICAL HISTORY: tingling L side of body, r/o acute cva. TECHNIQUE: Imaging Protocol: Axial computed tomography images with coronal and sagittal reformatted images were created and reviewed COMPARISON: CT CT BRAIN NECK CTA from 08/14/2020 FINDINGS: The ventricular system is normal in appearance. No evidence of acute intracranial hemorrhage, mass effect, or midline shift. Incidental note is made of tiny calcifications in the left and right basal ganglia. The orbital structures are unremarkable. The temporal bone structures appear intact. Calvarium: Normal. Visualized Paranasal sinuses/Mastoids: Clear. IMPRESSION: No evidence of acute intracranial process. RADIATION DOSE DELIVERED: 725.51mGy.cm Total DLP 725.51mGy.cm Total DLP 37.08mGy CTDIvol DATA REPOSITORY: All CT scans at this facility are submitted to the National Radiology Data Registry (NRDR) Dose Index Registry (DIR) with the [employer] ([employer]). RADIATION OPTIMIZATION: All CT scans at this facility use at least one of these dose optimization te chniques: automated exposure control; mA and/or kV adjustment per patient size (includes targeted exa ms where dose is matched to clinical indication); or iterative reconstruction.
--- NOTE | 2021-01-12 19:03 | DI.VRAD_ITS ---
PROCEDURE INFORMATION: Exam: CT Head Without Contrast Exam date and time: 01/12/2021 6:22 PM Age: 50 years old Clinical indication: Tingling L side of body, R/O acute CVA TECHNIQUE: Imaging protocol: Computed tomography of the head without contrast. COMPARISON: MR BRAIN WO 08/15/2020 8:31 AM FINDINGS: Brain: There is no acute intracranial hemorrhage, mass effect or midline shift. There is no large acute territorial cerebral infarct. Left basal ganglia calcifications are noted. Cerebral ventricles: No ventriculomegaly. Paranasal sinuses: Visualized sinuses are unremarkable. No fluid levels. Mastoid air cells: Visualized mastoid air cells are well aerated. Bones/joints: Unremarkable. No acute fracture. Soft tissues: Unremarkable. IMPRESSION: No acute intracranial hemorrhage, mass effect or midline shift. If there is further clinical concern for acute infarct, MRI may be considered. Dictated and Authenticated by: Flaca Cabral MD. Ordering:JUSTICE Vega MD
--- NOTE | 2021-01-12 19:15 | DI.RAD_ITS ---
Exam(s) XR CHEST 2V PA LATERAL EXAM: XR CHEST 2V PA LATERAL CLINICAL HISTORY: dizziness, r/o acute disease TECHNIQUE: 2D digital imaging was performed. COMPARISON: CR,XR XR PORTABLE CHEST AP from 08/14/2020 FINDINGS: The heart is not enlarged. The lungs are clear and well expanded. No pleural effusion seen. Mediastin al contours appear intact. Old left clavicular fixation noted. IMPRESSION: Normal chest. RADIATION DOSE DELIVERED: Total DLP
--- NOTE | 2021-01-12 19:15 | DI.RAD_ITS ---
Exam(s) XR SOFT TISSUE NECK EXAM: XR SOFT TISSUE NECK CLINICAL HISTORY: sore throat on R in neck when swallows TECHNIQUE: COMPARISON: No exams were available for comparison FINDINGS: Two views were obtained. The tracheal laryngeal air shadows appear intact. No evidence of retrophar yngeal swelling. No specific findings. IMPRESSION: Negative soft tissue neck. RADIATION DOSE DELIVERED: Total DLP
[2021-01-12] MEDS: Dexamethasone 10 MG/ML VIAL IVP (19:19)
[2021-01-12] MEDS: Normal Saline 1,000 ML 1000 ML IV (19:20)
[2021-01-12] MEDS: ACETAMINOPHEN 1,000 MG/100 ML BTL 400 MG IVPB (19:20)
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
[2021-01-12 19:25] LABS: Abs Immature Grans 0.03 10^3/uL (0.0-0.06); Absolute Basophil Count 0.03 10^3/uL (0.0-0.2); Absolute Eosinophil Count 0.11 10^3/uL (0.0-0.7); Absolute Monocyte Count 0.71 10^3/uL (0.1-0.8); Absolute Neutrophil Count 3.71 10^3/uL (1.2-6.7); Basophils % 0.4; Eosinophils % 1.6; HCT 42.3 % (40.0-50.0); HGB 14.1 g/dL (13.5-17.5); Immature Grans % 0.4; Lymphocytes % 34.3; MCH 30.5 pg (27.0-33.0); MCHC 33.3 % (32.0-36.0); MCV 91.6 fL (80-95); MPV 11.2 fL (8.0-11.0); Monocytes % 10.2; Neutrophils % 53.1; Nucleated RBC 0 %; Platelet Count 239 10^3/uL (130-400); RBC 4.62 10^6/uL (4.36-5.78); RDW-SD 40.1 fL; WBC 6.99 10^3/uL (4.4-10.8)
--- NOTE | 2021-01-12 19:30 | RT.EKG_ITS ---
APPROVED REPORT Exam: Resting ECG Reason for Exam: dizziness Patient Location: E HR:46 bpm ECG Measurements Heart Rate 46 AXIS CA 198 P 61 QRSd 86 QRS 69 QT 432 T 27 QTc 379 Conclusion Sinus bradycardia...rate< 60 ST elev, probable normal early repol pattern...ST elevation, age<55. Sinus. Benign early repol seen in previous EKG. No STEMI. No significant change in previous EKG. I have reviewed and interpreted ECG and agree with software generated interpretation.
[2021-01-12 19:34] LABS: Magnesium 2.2 mg/dL (1.8-2.4)
[2021-01-12] MEDS: Prochlorperazine 10 MG/2 ML VIAL IVP (19:37)
[2021-01-12 19:40] LABS: ALT 35 U/L (16-63); AST 27 U/L (15-37); Albumin 4.4 g/dL (3.4-5.0); Alkaline Phosphatase 72 U/L (46-116); Anion Gap 9.6 mmol/L (3-11); BUN 16 mg/dL (7-18); Bilirubin, Total 0.4 mg/dL (0.2-1.0); CO2 25.4 mmol/L (21.0-32.0); CREATININE 0.9 mg/dL (0.70-1.30); Calcium 9.8 mg/dL (8.5-10.1); Chloride 107 mmol/L (98-107); Glucose 94 mg/dL (74-106); Potassium 3.8 mmol/L (3.5-5.1); Sodium 142 mmol/L (136-145); Total Protein 7.8 g/dL (6.4-8.2)
[2021-01-12 19:41] LABS: Troponin I < 0.05 ng/mL (<0.06)
[2021-01-12] MEDS: Omnipaque 350 MG/ML 100 ML BTL IJ (20:21)
[2021-01-12] MEDS: Normal Saline Flush 10 ML SYR IVP (20:22)
--- NOTE | 2021-01-12 20:35 | DI.CT_ITS ---
Exam(s) CT BRAIN NECK CTA EXAM: CT BRAIN NECK CTA CLINICAL HISTORY: L sided headache, dizziness. TECHNIQUE: Imaging Protocol: Axial CT angiography was performed with multi-slice acquisition and mu lti-planar and/or 3D reconstructions. CONTRAST MATERIAL: Intravenous: Omnipaque 350 Contrast volume:structured data in ml COMPARISON: CT CT BRAIN NECK CTA from 08/14/2020 FINDINGS: CT angiography of the cervical cranial region was performed according to the usual protocol with intr avenous infusion of 85 cc of Omnipaque 350.. Initial noncontrast scanning of the head is unremarkable. Visualized lung apices are clear. Visualized portions of thoracic aorta and pulmonary arterial circul ation are unremarkable. There is no evidence of a cervical mass or adenopathy. The tracheal laryngeal structures appear intact. The common, internal, and external carotid arteries are within normal limits in the cervical region w ith no evidence of aneurysm, stenosis, or dissection. Minimal calcified plaque at the origin of the right internal carotid artery. The vertebral arteries are unremarkable in appearance in the cervical region with no evidence of aneu rysm, stenosis, or dissection. Left dominant vertebral circulation noted. Intracranial portions of the internal carotid arteries appear normal with no evidence of aneurysm, st enosis, or dissection. Intracranial vertebral arteries and basilar artery appear normal with no evidence of aneurysm, stenos is or dissection. No aneurysm identified in the region of the [id number]. The anterior, middle, and posterior cer ebral arteries and major branches appear intact with no evidence of aneurysm, stenosis, or dissection . No enhancing brain lesion identified on 5 minutes delayed images.. IMPRESSION: Negative CT angiography of the cervical cranial region. RADIATION DOSE DELIVERED: 1,142.31mGy.cmTotal DLP 1,142.31mGy.cm Total DLP 40.85mGy CTDIvol DATA REPOSITORY: All CT scans at this facility are submitted to the National Radiology Data Registry (NRDR) Dose Index Registry (DIR) with the [employer] (ACR). RADIATION OPTIMIZATION: All CT scans at this facility use at least one of these dose optimization te chniques: automated exposure control; mA and/or kV adjustment per patient size (includes targeted exa ms where dose is matched to clinical indication); or iterative reconstruction.
--- NOTE | 2021-01-12 21:03 | DI.VRAD_ITS ---
PROCEDURE INFORMATION: Exam: CT Angiography Head With Contrast, Arteriography Exam date and time: 01/12/2021 7:14 PM Age: 50 years old Clinical indication: L sided headache, dizziness R/O acute CVA TECHNIQUE: Imaging protocol: Computed tomography angiography of the head with contrast. Exam focused on the arteries. 3D rendering (Not supervised by radiologist): MIP and/or 3D reconstructed images were created by the technologist. Contrast material: OMNIPAQUE 350; Contrast volume: 85 ml; Contrast route: INTRAVENOUS (IV); COMPARISON: CT BRAIN NECK CTA 08/14/2020 10:30 AM FINDINGS: ANTERIOR CIRCULATION: Right internal carotid artery: Unremarkable. Intracranial segment is patent with no significant stenosis. No aneurysm. Right middle cerebral artery: Unremarkable. No occlusion or significant stenosis. No aneurysm. Right anterior cerebral artery: Unremarkable. No occlusion or significant stenosis. No aneurysm. Left internal carotid artery: Unremarkable. Intracranial segment is patent with no significant stenosis. No aneurysm. Left middle cerebral artery: Unremarkable. No occlusion or significant stenosis. No aneurysm. Left anterior cerebral artery: Unremarkable. No occlusion or significant stenosis. No aneurysm. POSTERIOR CIRCULATION: Right vertebral artery: Unremarkable. No occlusion or significant stenosis. No aneurysm. Left vertebral artery: Unremarkable. No occlusion or significant stenosis. No aneurysm. Basilar artery: Unremarkable. No occlusion or significant stenosis. No aneurysm. Right posterior cerebral artery: Unremarkable. No occlusion or significant stenosis. No aneurysm. Left posterior cerebral artery: Unremarkable. No occlusion or significant stenosis. No aneurysm. Brain: No definite mass, mass effect, or midline shift. Cerebral ventricles: No ventriculomegaly. Bones/joints: Unremarkable. No acute fracture. Soft tissues: Unremarkable. IMPRESSION: No large vessel stenosis or occlusion. PROCEDURE INFORMATION: Exam: CT Angiography Neck With Contrast Exam date and time: 01/12/2021 7:14 PM Age: 50 years old Clinical indication: Other: L sided headache, dizziness R/O acute CVA TECHNIQUE: Imaging protocol: Computed tomography angiography of the neck with contrast. 3D rendering (Not supervised by radiologist): MIP and/or 3D reconstructed images were created by the technologist. Contrast material: OMNIPAQUE 350; Contrast volume: 85 ml; Contrast route: INTRAVENOUS (IV); COMPARISON: CT BRAIN NECK CTA 08/14/2020 10:30 AM FINDINGS: Right common carotid artery: No stenosis. No dissection or occlusion. Right internal carotid artery: No stenosis of the extracranial segment. No dissection or occlusion. Right external carotid artery: No occlusion or stenosis of the origin. Left common carotid artery: No stenosis. No dissection or occlusion. Left internal carotid artery: No stenosis of the extracranial segment. No dissection or occlusion. Left external carotid artery: No occlusion or stenosis of the origin. Right vertebral artery: No stenosis. No dissection or occlusion. Left vertebral artery: No stenosis. No dissection or occlusion. Soft tissues: Normal. No significant soft tissue swelling. Bones/joints: No acute fracture. IMPRESSION: No stenosis or occlusion. REFERENCES: NASCET CRITERIA. The degree of internal carotid artery stenosis is based on NASCET criteria. Normal is no stenosis. Mild is less than 50% stenosis. Moderate is 50-69% stenosis. Severe is 70% to 99% stenosis. Total occlusion is no detectable patent lumen. Dictated and Authenticated by: Flaca Cabral MD. Ordering:JUSTICE Vega MD
--- NOTE | 2021-01-12 21:05 | DI.VRAD_ITS ---
PROCEDURE INFORMATION: Exam: XR Soft Tissue Neck Exam date and time: 01/12/2021 7:17 PM Age: 50 years old Clinical indication: Sore throat on R in neck when swallows TECHNIQUE: Imaging protocol: XR of the soft tissues of the neck. COMPARISON: CT BRAIN NECK CTA 01/12/2021 8:23 PM FINDINGS: Airway: Normal. No abnormal narrowing. Soft tissues: Normal. Normal epiglottis. Bones/joints: Unremarkable. IMPRESSION: No acute findings. Dictated and Authenticated by: Flaca Cabral MD. Ordering:JUSTICE Vega MD
--- NOTE | 2021-01-12 21:06 | DI.VRAD_ITS ---
PROCEDURE INFORMATION: Exam: XR Chest Exam date and time: 01/12/2021 7:17 PM Age: 50 years old Clinical indication: Dizziness, R/O acute disease TECHNIQUE: Imaging protocol: XR of the chest. Views: 2 views. COMPARISON: CR XR PORTABLE CHEST AP 08/14/2020 11:30 AM FINDINGS: Lungs: No consolidation. Pleural spaces: No pleural effusion. No pneumothorax. Heart/Mediastinum: No cardiomegaly. Bones/joints: The patient is status post internal fixation of prior left clavicular fracture. IMPRESSION: No acute findings. Dictated and Authenticated by: Flaca Cabral MD. Ordering:JUSTICE Vega MD
== END 2021-01-12 21:23 | disposition home or self-care (01) ==
PROVIDERS: Physician Assistant; Emergency Provider Emergency Medicine; PCP Nurse Practitioner Family
DX: R42 Dizziness and giddiness (principal); R51.9 Headache, unspecified; R20.2 Paresthesia of skin; J02.9 Acute pharyngitis, unspecified; R13.13 Dysphagia, pharyngeal phase
CPT/HCPCS: 70496; 70498; 80053; 93005; 96361; 96374; 96375; 99285; 70360; 70450; 71046; 83735; 84484; 85025; 93010; 99284; J0131; J0780; J1100; J3490

== ENCOUNTER 2021-07-14 03:38 | Outpatient (CLI) | payer MEDICAID, SELFPAY ==
[2021-07-14 22:28] LABS: COVID-19 RT-PCR UVMMC Result Negative (Negative)
== END 2021-07-14 03:39 | disposition home or self-care (01) ==
LOC: LBO 03:38
PROVIDERS: PCP Nurse Practitioner Family; Visit Provider Surgery
DX: Z20.822 Contact with and (suspected) exposure to COVID-19 (principal)
CPT/HCPCS: 87635; U0003

== ENCOUNTER 2021-07-17 08:24 | Day surgery (SDC) | payer MEDICAID, SELFPAY ==
[2021-07-14 13:50] VITALS: BP 106/82; PULSE 65; RESP 16; TEMP 36.3; O2SAT 99
--- NOTE | 2021-07-17 06:59 | COLE_ITS ---
Colonoscopy Report Date of procedure: 07/17/21 Pre-op diagnosis general: colon cancer screening Post-op diagnosis procedure note: other (Cecal ulcers, Grade 1 internal hemorrhoids) Procedure: Colonoscopy with biopsies Surgeon: Bailee Macdonald Anesthesia Type: General:No Airway Estimated blood loss (mL): 5 Pathology: other (cecal biopsies) Complications: None Disposition: same day Indications: The patient is here for Colonoscopy pre-op.? He has no family history of colon cancer. He has had trouble with constipation and intermittent bleeding from internal hemorrhoids. -Discussed colonoscopy bowel prep as well as the procedure. Discussed possible complications of the procedure to include bleeding, pain, perforation, missed small lesion/polyp, sore throat, aspiration and adverse reaction to the medications. Questions were answered to patient?s satisfaction. No guarantees were implied or given.? Prep: Miralax/Dulcolax Procedure Start Time: 09:46 Procedure End Time: 10:10 Retraction Time: 14 minutes Findings: @ small ulcers in the cecum Grade 1 internal hemorrhoids Procedure Description: After informed consent was obtained the patient was taken to the procedure room and placed in a left decubitous position. Monitors were applied and a time out was done. The patients name, date of , procedure, allergies to medications and metal in their body was reviewed. The patient was then sedated. Once sedated and comfortable a rectal exam was done. External exam was normal. Internal exam revealed a normal sphincter tone and no palpable masses. The prostate felt smooth. The scope was then introduced and retro-flexed. Grade 1 internal hemorrhoids were identified on retro-flexion. No polyps or masses were identified on retro- flexion. The scope was then advanced to the cecum without difficulty. The ileocecal vlave and appendiceal orifice were identified. The prep was adequate. The scope was then slowly retracted over 14 minutes back into the rectum. There were 2 small ulcers in the cecum which were biopsied. It bled and clipps were placed to stop the bleeding. There were no Polyps. There was no diverticulosis noted. The scope was removed and the patient was woken up and taken back to Same day surgery in stable condition. The patient tolerated the procedure well and there were no immediate complications. Follow up: The patient should follow up in 10 years unless they develop changes in bowel habits or other new gastrointestinal complaints.
--- NOTE | 2021-07-17 07:00 | W.PM.DSUDISC ---
Discharge Plan Disposition Patient Disposition: HOME Condition: Stable Discharge Details Reason For Visit: Colonoscopy Attending Provider: Bailee Macdonald Primary Care Provider: Hernán Ureña Home Meds and New Rx's Prescriptions: New polyethylene glycol 3350 [ClearLax] 17 gram powder in packet 17 g PO DAILY Qty: 100 2RF Continued clopidogrel [Plavix] 75 mg tablet 75 mg PO DAILY Qty: 90 3RF atorvastatin 40 mg tablet 40 mg PO DAILY Qty: 90 3RF famotidine 20 mg tablet 20 mg PO PRN 0RF acetaminophen [Tylenol] 325 mg capsule 325 mg PO Q4H PRN0RF Vitamin D3 100 mcg (4,000 unit) Capsule 100 mcg PO DAILY 0RF Discontinued polyethylene glycol 3350 17 gram/dose powder 238 g PO ONCE Qty: 238 0RF Rx Instructions: take per colonoscopy instructions bisacodyl [Dulcolax (bisacodyl)] 5 mg tablet,delayed release (DR/EC) 5 mg PO ONCE Qty: 4 0RF Rx Instructions: take per colonoscopy instructions Discharge Instructions Instructions: Constipation (DC), High Fiber Diet (DC) Additional Instructions: Findings: a couple of ulcers in the cecum small internal hemorrhoids Follow up: 10 years Other: Recommend taking MIralax daily for constipation and over the counter hemorrhoid cream as needed Please call if you develop: fevers >101.5 Nausea or Vomiting Abdominal pain that is not transient Rectal bleeding that is more then a tbsp A hard abdomen and inability to pass gas DAY SURGERY UNIT POST ENDOSCOPY INSTRUCTIONS Instructions for everyone who is given Anesthesia: For your safety, please do the following for the next 24 Hours: a. Do not drive or operate dangerous equipment b. Do not drink alcohol beverages or use any recreational drugs for the first 24 hours or while taking pain medications. The medications in your body may have a reaction that can be dangerous. c. Do not make any important decisions or sign any important papers 1. Generally there are no restrictions on your activity after a day or so has gone by, but you may feel a bit fatigued for a few days. 2. After you arrive home you may have a light meal and return to a normal diet as you can tolerate it without feeling sick to your stomach. 3. After surgery, you may feel pain or discomfort. This should be only transient, but if it persists please contact your doctor. 4. If there are any questions regarding the findings of your procedure, please feel free to contact your doctor. 6. If you are unable to contact your doctor with a problem, contact the hospital at [phone]. 7. Continue all your regular medications unless directed otherwise. I understand the above instructions and have no questions. Signature of Patient or Responsible Adult Escort Date/Time Name of Responsible Adult Escort Signature of Nurse Date/Time Activity:: Activity as Tolerated Diet:: high fiber Discharge Orders Discharge Orders: Discharge Order (Routine); Ordered 07/17/21 Ordered By: Bailee Macdonald
[2021-07-17 08:55] VITALS: BP 106/82; PULSE 65; RESP 16; TEMP 36.3; O2SAT 99
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
[2021-07-17] MEDS: Lactated Ringers 1,000 ML 80 ML IV (09:21)
[2021-07-17 09:25] VITALS: BMI 25.8
--- NOTE | 2021-07-17 09:58 | BOWEL_PTH ---
PATIENT: Man Munson LOC: [facility] U#:[id number] AGE/SX: 51/M ROOM: RE07/17/[address]: Bailee Macdonald MD : 1970 BED: DIS: 07/17/2021 SPEC #: [id number] RECD: 07/17/21 12:50 STATUS: NOEMI REQ #: [id number] RICH: 07/17/21 09:[address]: Bailee Macdonald DEPT: Surgical Specimen RECD BY: Mickie Oconnor ENTERED: 07/17/21 12:51 SP TYPE: Bowel OTHR DR: Hernán Ureña, [place] Tissues: 1 - BIOPSY BOWEL Procedures: GROSS AND MICRO LEVEL 4 Comments: [id number]
--- NOTE | 2021-07-17 10:02 | W.ANESPOSTOP ---
Postoperative Evaluation Date, Time and Location Date Performed: 07/17/21 Time Performed: 08:55 Patient Location: Day Surgery Unit Vital Signs Most Recent Imported Vital Signs: Most Recent Vital Signs Temp Pulse Resp BP Pulse Ox 36.3 C L 65 16 106/82 99 07/17/21 08:55 07/17/21 08:55 07/17/21 08:55 07/17/21 08:55 07/17/21 08:55 Pain Score Most Recent Pain Score: Most Recent Pain Score Pain Level 0 07/17/21 08:55 Assessment Mental Status: Awake (Alert & Oriented to Patient Baseline) Airway and Respiratory Function: Patent airway with normal (patient baseline) respiratory exam Cardiovascular Function: Hemodynamically Stable Hydration Status: Adequately Hydrated Nausea & Vomiting: No Nausea or Vomiting Pain: Pain is tolerable per patient (Throat slightly sore) Peripheral Nerve Block: Patient did not receive a nerve block
[2021-07-17 10:22] VITALS: BP 105/60; PULSE 63; RESP 20; TEMP 35.8; O2SAT 99
[2021-07-17 10:50] VITALS: BP 108/74; PULSE 60; RESP 18; TEMP 36.2; O2SAT 100
--- NOTE | 2021-07-17 11:10 | W.ANESPOSTOP ---
Postoperative Evaluation Date, Time and Location Date Performed: 07/17/21 Time Performed: 10:22 Patient Location: Day Surgery Unit Vital Signs Most Recent Imported Vital Signs: Most Recent Vital Signs Temp Pulse Resp BP Pulse Ox 35.8 C L 63 20 105/60 99 07/17/21 10:22 07/17/21 10:22 07/17/21 10:22 07/17/21 10:07/17/21 10:22 Pain Score Most Recent Pain Score: Most Recent Pain Score Pain Level 0 07/17/21 10:22 Assessment Mental Status: Awake (Alert & Oriented to Patient Baseline) Airway and Respiratory Function: Patent airway with normal (patient baseline) respiratory exam Cardiovascular Function: Hemodynamically Stable Hydration Status: Adequately Hydrated Nausea & Vomiting: No Nausea or Vomiting Pain: Pt. Denies Any Pain Peripheral Nerve Block: Patient did not receive a nerve block
== END 2021-07-17 11:16 | disposition home or self-care (01) ==
LOC: SUR 08:25
PROVIDERS: PCP Nurse Practitioner Family; Visit Provider Surgery
PROC: 0DJD8ZZ Inspection of Lower Intestinal Tract, Via Natural or Artificial Opening Endoscopic (ICD-10-PCS; CPT 45378; principal; 2021-07-17 09:30)
DX: Z12.11 Encounter for screening for malignant neoplasm of colon (principal); K64.0 First degree hemorrhoids; K63.3 Ulcer of intestine; R73.03 Prediabetes; Z86.73 Personal history of transient ischemic attack (TIA), and cerebral infarction without residual deficits; K63.89 Other specified diseases of intestine
CPT/HCPCS: 45380; 88305; J2001

== ENCOUNTER → 2021-11-14 01:41 | Outpatient (CLI) | payer MEDICAID, SELFPAY ==
--- NOTE | 2021-11-14 06:45 | DI.MRI_ITS ---
Exam(s) MR BRAIN W EXAM: MR BRAIN W CLINICAL HISTORY: new R medulla lesion seen on [facility] MRI 10/31,DIZZINESS,R42 TECHNIQUE: Multiplanar multisequence MRI of the brain was performed. CONTRAST MATERIAL: IV Contrast: 15 mL of Dotarem contrast administered. COMPARISON: MR MR BRAIN WO from 08/15/2020 MR MR BRAIN WO CONTRAST from 10/31/2021 FINDINGS: VENTRICLES AND EXTRA AXIAL SPACES: Normal in size and morphology for the patient's age. HEMORRHAGE: None. CEREBRAL PARENCHYMA: There again seen multiple areas of hyperintense signal on the FLAIR and T2 weigh danya images. MIDLINE SHIFT: None. BRAINSTEM/CEREBELLUM: There is again seen a 7 transverse by 7.4 AP by 9.1 craniocaudad focus of hyper intense signal on the T2 and FLAIR images in the right aspect of the medulla. This is unchanged comp ared to the MRI from 10/31/2021. Following contrast administration, this shows no enhancement. CALVARIUM: Normal. ENHANCEMENT: No suspicious enhancement identified. VISUALIZED PARANASAL SINUSES/MASTOIDS: Clear. [place]: Normal flow void. PITUITARY GLAND: Unremarkable. OTHER FINDINGS: IMPRESSION: 1. Stable focus of hyperintense signal in the right aspect of the medulla. No enhancement is seen fo llowing contrast administration. Differential considerations include old infarct, vasculitis, inflam matory/infectious conditions, demyelinating process including chronic microvascular ischemia, or poss ible neoplasm. A follow-up examination in 3 months is recommended for re-evaluation. 2. Multiple hyperintense areas in the white matter on the FLAIR and T2 weighted images. Diagnostic c onsiderations include prior trauma, migraine related deep white matter disease, demyelinating process and vasculitis. DATA REPOSITORY:
[2021-11-14 09:22] LABS: CREATININE 0.7 mg/dL (0.70-1.30)
[2021-11-14] MEDS: Normal Saline Flush 10 ML SYR IVP (09:33)
== END ==
PROVIDERS: PCP Nurse Practitioner Family; Visit Provider Psychiatry & Neurology Neurology
DX: R42 Dizziness and giddiness (principal); G93.9 Disorder of brain, unspecified
CPT/HCPCS: 70552; 82565

== ENCOUNTER 2021-11-17 09:01 | Outpatient (CLI) | payer MEDICAID, SELFPAY ==
[2021-11-17 09:21] VITALS: BP 121/74; PULSE 60; RESP 18; TEMP 36.5; O2SAT 100
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
[2021-11-17 09:40] VITALS: BMI 25.8
[2021-11-17 09:50] VITALS: BP 138/81; PULSE 74; RESP 14; TEMP 36.4; O2SAT 100
--- NOTE | 2021-11-17 10:03 | PAPNONF_PTH ---
PATIENT: Man Munson LOC: [facility] U#:[id number] AGE/SX: 51/M ROOM: RE11/17/[address]: Amanda Tyler : 1970 BED: DIS: 11/17/2021 SPEC #: [id number] RECD: 11/17/21 11:43 STATUS: NOEMI REQ #: [id number] RICH: 11/17/21 10:[address]: Amanda Tyler DEPT: [facility] Cytology RECD BY: Sheri Quan ENTERED: 11/17/21 11:48 SP TYPE: PAPADOLFOF CIELO DR: Hernán Ureña, [employer] Tissues: 1 - BODY FLUID CYTO(NOT S/U/N/EM)[facility] Procedures: BODY FLUID CYTO(NOT SPU/UR/NIP/ENDOM)[facility] Comments: [id number] (TOTAL VOLUME = 2.4 cc) (SENT FRESH)
[2021-11-17 10:05] VITALS: BP 107/78; PULSE 55; RESP 16; TEMP 36.5; O2SAT 99
--- NOTE | 2021-11-17 10:25 | W.ANESPROC ---
Lumbar Puncture Date Performed: 11/17/21 Procedure Time: 09:54 Requesting Provider: Leeanne Pope Procedure Location: Day Surgery Unit Standard Monitors Applied: ECG, Blood Pressure, SpO2 and See EMR for corresponding vital signs Patient Position: Sitting Timeout Performed: Yes Sedation Given (Indicate Dose Given): No Sedation given Patient Mental Status: Awake Sterility: Hand Hygiene, Surgical Cap, Surgical Mask, Sterile Gloves, Sterile Drape/Sheet and Chlorhexidine Placement Site: L3-L4 Interspace Spinal Needle Type: Brunilda 22 Gauge Needle Length: 3.5 Inch Lumbar Puncture Procedure: Site Prepped, Sterile Drape Placed, 1% Lidocaine to skin and subcutaneous tissue with 25G needle, Spinal Needle Placed, Negative Heme and Positive CSF Flow Ultrasound: Not Used Paresthesia: None Number of Previous Attempts by Other Providers: 0 Number of Attempts (See previous attempts in note section): 2 Procedure Tolerated: No Complications Procedure Outcome: Successful Procedure Comment:: First attempt unsuccessful at L4-5, contacted bone even with repositioning, successful at L3-4 Performed By: Amanda Tyler
[2021-11-17 10:43] LABS: Glucose (CSF) 58 mg/dL (40-70); Total Protein (CSF) 34 mg/dL (15-45)
--- NOTE | 2021-11-17 10:49 | W.ANESPOSTOP ---
Postoperative Evaluation Date, Time and Location Date Performed: 11/17/21 Time Performed: 10:49 Patient Location: Day Surgery Unit Vital Signs Most Recent Imported Vital Signs: Most Recent Vital Signs Temp Pulse Resp BP Pulse Ox 36.5 C 55 L 16 107/78 99 11/17/21 10:05 11/17/21 10:05 11/17/21 10:05 11/17/21 10:05 11/17/21 10:05 Pain Score Most Recent Pain Score: Most Recent Pain Score Pain Level 0 11/17/21 10:05 Assessment Mental Status: Awake (Alert & Oriented to Patient Baseline) Airway and Respiratory Function: Patent airway with normal (patient baseline) respiratory exam Cardiovascular Function: Hemodynamically Stable Hydration Status: Adequately Hydrated Nausea & Vomiting: No Nausea or Vomiting Pain: Pt. Denies Any Pain Peripheral Nerve Block: Patient did not receive a nerve block Postoperative Comments:: Post procedure instructions reviewed with Patient by OLENA
[2021-11-17 11:35] LABS: Clarity Clear; RBC 2 /mm3 (0-5); Tube # 4; WBC 1 /uL (0-5); Xanthochromia Absent
[2021-11-21 10:23] LABS: IgG Index, CSF 0.62 Index (<=0.84); IgG, CSF 1.83 mg/dL (<=5.00); IgG, S 844 mg/dL (610-1,616); IgG/Albumin, CSF 0.13 Ratio (<=0.24); Synthesis Rate, CSF <0.01 mg/24hrs (<=8.00)
[2021-11-21 16:02] LABS: CSF Bands 1 bands; CSF Olig Bands Interpretation 1 bands (<2); Serum Bands 0 bands
== END 2021-11-17 11:05 | disposition home or self-care (01) ==
PROVIDERS: Psychiatry & Neurology Neurology; PCP Nurse Practitioner Family; Visit Provider Nurse Anesthetist, Certified Registered
PROC: 009U3ZZ Drainage of Spinal Canal, Percutaneous Approach (ICD-10-PCS; CPT 62270; principal; 2021-11-17 10:00)
DX: R42 Dizziness and giddiness (principal)
CPT/HCPCS: 62270; 82945; 89050; 89051; 82040; 82042; 82784; 83916; 84157; 87070; 87075; 87205; 88104

== ENCOUNTER 2021-11-21 16:55 | Emergency (ER) | payer MEDICAID, SELFPAY ==
[2021-11-21 17:02] VITALS: BP 113/71; PULSE 61; RESP 18; TEMP 36.7; O2SAT 99
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
--- NOTE | 2021-11-21 17:30 | DI.CT_ITS ---
Exam(s) CT HEAD WO EXAM: CT HEAD WO CLINICAL HISTORY: headache, r/o acute process. TECHNIQUE: Imaging Protocol: Axial computed tomography images with coronal and sagittal reformatted images were created and reviewed COMPARISON: CT CT BRAIN NECK CTA from 01/12/2021 FINDINGS: Ventricles and Extra axial spaces: Normal in size and morphology for the patient's age. Hemorrhage: None. Cerebral parenchyma: Normal. Midline shift: None. Brainstem/Cerebellum: Normal. Calvarium: Normal. Visualized Paranasal sinuses/Mastoids: Clear. Soft Tissues: Unremarkable. IMPRESSION: No acute intracranial process. RADIATION DOSE DELIVERED: 771.62mGy.cm Total DLP DATA REPOSITORY: All CT scans at this facility are submitted to the National Radiology Data Registry (NRDR) Dose Index Registry (DIR) with the [employer] (A[employer]). RADIATION OPTIMIZATION: All CT scans at this facility use at least one of these dose optimization te chniques: automated exposure control; mA and/or kV adjustment per patient size (includes targeted exa ms where dose is matched to clinical indication); or iterative reconstruction.
[2021-11-21 17:56] LABS: Lactate 0.8 mmol/L (0.6-1.4)
[2021-11-21 18:00] LABS: Abs Immature Grans 0.02 10^3/uL (0.0-0.06); Absolute Basophil Count 0.05 10^3/uL (0.0-0.2); Absolute Eosinophil Count 0.12 10^3/uL (0.0-0.7); Absolute Lymphocyte Count 1.55 10^3/uL (1.2-3.4); Absolute Monocyte Count 0.65 10^3/uL (0.1-0.8); Absolute Neutrophil Count 2.75 10^3/uL (1.2-6.7); Eosinophils % 2.3; HGB 14.6 g/dL (13.5-17.5); Immature Grans % 0.4; Lymphocytes % 30.2; MCH 31.1 pg (27.0-33.0); MCV 92 fL (80-95); MPV 10.8 fL (8.0-11.0); Monocytes % 12.6; Neutrophils % 53.5; Platelet Count 241 10^3/uL (130-400); RBC 4.69 10^6/uL (4.36-5.78); RDW 12.8 % (11.8-14.1); RDW-SD 42.8 fL; WBC 5.14 10^3/uL (4.4-10.8)
[2021-11-21] MEDS: Dexamethasone 10 MG/ML VIAL IVP (18:13)
[2021-11-21] MEDS: Prochlorperazine 10 MG/2 ML VIAL IVP (18:13)
[2021-11-21] MEDS: ACETAMINOPHEN 1,000 MG/100 ML BTL 400 MG IVPB (18:13)
[2021-11-21] MEDS: diazePAM 5 MG TAB PO (18:13)
--- NOTE | 2021-11-21 18:14 | DI.VRAD_ITS ---
PROCEDURE INFORMATION: Exam: CT Head Without Contrast Exam date and time: 11/21/2021 6:01 PM Age: 51 years old Clinical indication: Other: Headache, R/O acute process TECHNIQUE: Imaging protocol: Computed tomography of the head without contrast. Radiation optimization: All CT scans at this facility use at least one of these dose optimization techniques: automated exposure control; mA and/or kV adjustment per patient size (includes targeted exams where dose is matched to clinical indication); or iterative reconstruction. COMPARISON: MR BRAIN W 11/14/2021 9:20 AM FINDINGS: Brain: No evidence for acute transcortical infarct. No mass effect or midline shift. No extra-axial collection. No acute intracranial hemorrhage. Basal cisterns are patent. Cerebral ventricles: No ventriculomegaly. Paranasal sinuses: Visualized sinuses are unremarkable. No fluid levels. Mastoid air cells: Visualized mastoid air cells are well aerated. Bones/joints: Unremarkable. No acute fracture. Soft tissues: Unremarkable. IMPRESSION: No hydrocephalus, acute intracranial hemorrhage, or mass effect. Dictated and Authenticated by: Tong Santiago MD. Ordering:JUSTICE Vega MD
--- NOTE | 2021-11-21 18:15 | PDOC.ANES ---
Anesthesia Note Report Anesthesia Note: The mother of the patient called [facility] about symptoms her son was having after a lumbar puncture on November 17. Mrs. uMnson described that her son was having dizziness, neck stiffness, and pressure in his head that was releived when he laid down. I returned a call to gather more information. Mrs. Munson told me that she had already called Dr. Araiza's office and was told by a nurse practitioner that she needed to take him to the emergency room, which she was doing when I called. I told her I would meet her in the ED to evaluate her son. When I arrived in the ED I spoke with Dr. Britt who had already ordered a CT scan. I went and spoke with Man and his Mother. I found the patient sitting up in the gurney with his head at approximately 45 degrees. All of the florescent lights in the room were on. The patient described dizziness, neck stiffness, and headache that has gotten worse today and presents itself in the mornings everyday since Saturday. He has mild headaches mostly in the morning and dissipating throughout the day with Saturday, Saturday, and Saturday being described as mild. Man states that he can only be up out of bed walking around the house for about an hour at a time before he lays down and then the headache lessens. I spoke with Neurologist, Dr. Vega by phone. It was recommended that Man be discharged to home, without intervention and she would see him in the office at the next available appointment.
[2021-11-21 18:28] LABS: ALT 29 U/L (16-63); AST 18 U/L (15-37); Albumin 3.8 g/dL (3.4-5.0); Alkaline Phosphatase 72 U/L (46-116); Anion Gap 7.4 mmol/L (3-11); BUN 14 mg/dL (7-18); Bilirubin, Total 0.4 mg/dL (0.2-1.0); CO2 25.6 mmol/L (21.0-32.0); CREATININE 0.7 mg/dL (0.70-1.30); Calcium 9.2 mg/dL (8.5-10.1); Chloride 106 mmol/L (98-107); Glucose 95 mg/dL (74-106); Potassium 4.2 mmol/L (3.5-5.1); Sodium 139 mmol/L (136-145); Total Protein 7.1 g/dL (6.4-8.2)
[2021-11-21 19:47] VITALS: PULSE 76; RESP 18; O2SAT 99
== END 2021-11-21 19:48 | disposition home or self-care (01) ==
PROVIDERS: Emergency Provider Physician Assistant; PCP Nurse Practitioner Family
DX: R51.9 Headache, unspecified (principal); R42 Dizziness and giddiness; M54.2 Cervicalgia; Z98.890 Other specified postprocedural states
CPT/HCPCS: 80053; 96374; 96375; 99284; 70450; 83605; 85025; J0131; J0780; J1100